=== PATIENT | male | born 1955 | race African-American/Black ===

== ENCOUNTER 2016-12-15 18:31 | Emergency (ER) | payer MEDICAID ==
[~2016-12-15] VITALS: Ht 180.3 cm; Wt 61.2 kg
[~2016-12-15 18:31] MED LIST: HUMALOG 75/255 UNIT1 SUBQ; HUMALOG KW200 UNIT/1 SQ
[2016-12-15 18:35] VITALS: BP 110/58
--- NOTE | 2016-12-15 18:43 | Emergency Room Report ---
History of Present Illness General Chief Complaint: Pain Source: Patient, EMS Present Illness HPI 61 YO M with IDDM presents with trip and fall walking to bathroom. C/o pain to right shoulder and right hip. Denies hitting head, taking AC or ASA. States " I havent gotten my insulin 3 days since I've been at this place ([facility])." Denies other medical problems. Denies preciptating chest pain, SOB, abd pain, headache, weakness. Allergies: Coded Allergies: No Known Allergies (Unverified , 07/15/16) Patient History Past Medical History: DM Past Surgical History: other - Right scott in femur Pertinent Family History: none Social History: Denies: alcohol use, drug use, smoking Immunizations: UTD Reviewed Nursing Documentation: PMH: Agreed, PSxH: Agreed Nursing Documentation-PMH Hx Hypertension: Yes Hx Diabetes: Yes Hx Neurological Problems: No Review of Systems All Other Systems: negative except mentioned in HPI Physical Exam Vital Signs Date Time Temp Pulse Resp B/P Pulse Ox O2 Delivery O2 Flow Rate FiO2 12/15/16 18:30 97.3 91 18 110/58 98 Sp02 EP Interpretation: reviewed, normal General Appearance: normal inspection, well appearing, no apparent distress, alert, GCS 15, non-toxic Head: normocephalic, atraumatic Eyes: bilateral eye EOMI, bilateral eye PERRL ENT: normal ENT inspection, hearing grossly normal, normal pharynx, no angioedema, normal voice Neck: normal inspection, full range of motion, supple, no bony tend Respiratory: normal inspection, lungs clear, normal breath sounds, no respiratory distress, no retraction, no wheezing Cardiovascular #1: normal peripheral pulses, regular rate, rhythm, no edema Gastrointestinal: normal inspection, normal bowel sounds, non tender, soft, no guarding, no hernia Rectal: deferred Genitourinary: no CVA tenderness Musculoskeletal: normal inspection, back normal, normal range of motion, no calf tenderness, Linda's Sign negative, other - No obvious trauma or deformity to 4 extremities. Mild ttp to top of right shoulder; no reduced ROM. 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 Bicarb normal. Glucose reduced to 323 s/p IVF NS and Insulin 5U. SerumCr at baseline. Unlikely DKA or HONK. Uncomplicated hyperglycemia from non-compliance. Patient states living facility has his correct dose of Insulin, doesnt require refill. Mild elevation in lueks possibly d/t stress from fall Right shoulder and AP pelvis xrays unremarkable for acute traumatic injury - analgesia provided in ED. Other X-Ray Diagnostic Results Other X-Ray Diagnostic Results : X-Ray Ordered: Right shoulder EP Interpretation: Yes Findings: no fractures, no dislocation, no soft tissue swelling Number of Views: 3 Other Impression AP pelvis 2 view ED review No acute fx, dislocation or soft tissue swelling Last Vital Signs Date Time Temp Pulse Resp B/P Pulse Ox O2 Delivery O2 Flow Rate FiO2 12/15/16 18:35 97.3 81 18 110/58 98 Status: improved Disposition: HOME, SELF-CARE Scripts Acetaminophen With Codeine (T#3) (TYLENOL #3 TAB*) Y Tab 1 TAB ORAL Q8H Y for For Pain, #30 TAB Prov: ONI BUCHANAN M.D. 12/15/16 ONI BUCHANAN M.D. Dec 15, 2016 18:42
[2016-12-15] MEDS ORDERED: Tylenol #3 tab (300mg/30mg) ORAL ONE (18:45)
[2016-12-15 19:11] LABS: BASOPHILS % (AUTO) 0.6 % (0.0-2.0); EOSINOPHILS % (AUTO) 0.9 % (0.0-3.0); LYMPHOCYTES % (AUTO) 22.6 % (20.0-45.0); MEAN CORPUSCULAR HEMOGLOBIN 33.1 PG (27.0-31.0); MEAN CORPUSCULAR HGB CONC 36.2 G/DL (32.0-36.0); MEAN CORPUSCULAR VOLUME 91 FL (80-99); MEAN PLATELET VOLUME 6.8 FL (6.5-10.1); MONOCYTES % (AUTO) 8.2 % (1.0-10.0); NEUTROPHILS % (AUTO) 67.8 % (45.0-75.0); PLATELET COUNT 272 K/UL (150-450); RED BLOOD COUNT 3.65 M/UL (4.70-6.10); RED CELL DISTRIBUTION WIDTH 10.2 % (11.6-14.8); WHITE BLOOD COUNT 13.6 K/UL (4.8-10.8)
[2016-12-15 19:30] LABS: ALANINE AMINOTRANSFERASE 16 U/L (3-41); ALBUMIN/GLOBULIN RATIO 1.4 (1.0-2.7); ANION GAP 18 (5-15); ASPARTATE AMINO TRANSFERASE 22 U/L (5-40); CALCIUM 9.4 mg/dL (8.6-10.2); CARBON DIOXIDE 23 mEQ/L (20-30); CHLORIDE 91 mEQ/L (98-107); CREATININE 1.2 mg/dL (0.7-1.2); GLOMERULAR FILTRATION RATE > 60 mL/min (>60); HEMOLYSIS 6; POTASSIUM 4.4 mEQ/L (3.4-4.9); SODIUM 132 mEQ/L (135-145); TOTAL PROTEIN 5.9 g/dL (6.6-8.7)
[2016-12-15 19:50] VITALS: BP 168/79
[2016-12-15 19:57] LABS: KETONES,URINE NEGATIVE (NEGATIVE); LEUKOCYTE ESTERASE ,URINE NEGATIVE (NEGATIVE); NITRITE,URINE NEGATIVE (NEGATIVE); PH,URINE 7 (4.5-8.0); PROTEIN,URINE 3+ (NEGATIVE); UROBILINOGEN,URINE NORMAL MG/DL (0.0-1.0)
[2016-12-15 19:59] LABS: APPEARANCE,URINE CLEAR
[2016-12-15 20:03] LABS: BACTERIA,URINE FEW /HPF; WBC,URINE 0-2 /HPF (0 - 0)
[2016-12-15] MEDS ORDERED: Oxycodone/Acetaminophen 5-325 ORAL ONE (21:30)
[2016-12-15] MEDS ORDERED: ACETAMINOPHEN-1 EAC1 ORAL (21:40)
[2016-12-15 21:43] VITALS: BP 166/93
[2016-12-15 23:46] VITALS: BP 163/61
[2016-12-15 23:49] VITALS: BP 163/61
--- NOTE | 2016-12-16 10:24 | Diagnostic Imaging Report ---
Indication: pain Findings: Single AP view of the pelvis was performed. Bones are osteopenic. There is an intramedullary scott in the right proximal femur a dressing a healed midshaft fracture. No acute fracture is identified. Impression: No acute fracture identified
--- NOTE | 2016-12-16 10:24 | Diagnostic Imaging Report ---
Indication: Pain Findings: 3 views of the right shoulder were obtained. No acute fractures, malalignment, erosions or periostitis are identified. Bone mineralization is within normal limits. Soft tissues are unremarkable. Impression: Negative examination of the shoulder.
== END 2016-12-15 23:49 | disposition home or self-care (01) ==
LOC: EDBD 18:31 → EMR 19:46
DX: M25.511 Pain in right shoulder (principal); E10.65 Type 1 diabetes mellitus with hyperglycemia; M25.551 Pain in right hip; I10 Essential (primary) hypertension; W01.0XXA Fall on same level from slipping, tripping and stumbling without subsequent striking against object, initial encounter; Y93.9 Activity, unspecified; Y92.9 Unspecified place or not applicable
CPT/HCPCS: 36415; 72170; 73030; 80053; 81003; 82009; 85025; 96360; 96372; 99284; J1815

== ENCOUNTER 2016-12-21 07:12 | Inpatient (IN) | payer MEDICAID ==
[~2016-12-21] VITALS: Ht 175.3 cm; Wt 79.4 kg
[~2016-12-21 07:12] MED LIST changes: +ACETAMINOPHEN-1 EAC1 ORAL
[2016-12-21 07:20] VITALS: BP 133/70
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
[2016-12-21] MEDS ORDERED: LORazepam Inj 2mg/ml 1ml IV ONE (07:30)
[2016-12-21] MEDS ORDERED: Hydrogen Peroxide 120ml Bottle TOPIC ONE (07:40)
[2016-12-21 07:55] LABS: MEAN CORPUSCULAR HEMOGLOBIN 31.3 PG (27.0-31.0); MEAN CORPUSCULAR HGB CONC 33.8 G/DL (32.0-36.0); MEAN CORPUSCULAR VOLUME 93 FL (80-99); MEAN PLATELET VOLUME 7.1 FL (6.5-10.1); PLATELET COUNT 270 K/UL (150-450); RED BLOOD COUNT 3.95 M/UL (4.70-6.10); RED CELL DISTRIBUTION WIDTH 10.5 % (11.6-14.8); WHITE BLOOD COUNT 19.7 K/UL (4.8-10.8)
[2016-12-21 08:02] LABS: INR 1.1 (0.9-1.1); PROTHROMBIN TIME 10.7 SEC (9.30-11.50)
[2016-12-21 08:06] LABS: ALANINE AMINOTRANSFERASE 19 U/L (3-41); ALBUMIN/GLOBULIN RATIO 1.4 (1.0-2.7); ALCOHOL < 10 mg/dL; ANION GAP 14 (5-15); ASPARTATE AMINO TRANSFERASE 56 U/L (5-40); CALCIUM 9.6 mg/dL (8.6-10.2); CARBON DIOXIDE 29 mEQ/L (20-30); CHLORIDE 95 mEQ/L (98-107); GLOMERULAR FILTRATION RATE 41.2 mL/min (>60); HEMOLYSIS 2; POTASSIUM 4.5 mEQ/L (3.4-4.9); SODIUM 138 mEQ/L (135-145); TOTAL PROTEIN 7.2 g/dL (6.6-8.7)
[2016-12-21 08:10] LABS: TROPONIN I < 0.30 ng/mL (<=0.30)
[2016-12-21] MEDS ORDERED: Bacitracin Oint UD TOPIC ONE ×2 (08:29→10:00)
[2016-12-21 09:08] LABS: BAND NEUTROPHILS % (MANUAL) 0 % (0-8); BASOPHILS % (MANUAL) 0 % (0-2); EOSINOPHILS % (MANUAL) 1 % (0-3); LYMPHOCYTES % (MANUAL) 6 % (20-45); NEUTROPHILS % (MANUAL) 87 % (45-75); PLATELET ESTIMATE ADEQUATE; PLATELET MORPHOLOGY NORMAL; TOTAL CELLS COUNTED 100
[2016-12-21 09:12] VITALS: BP 114/52
[2016-12-21] MEDS ORDERED: insulin (09:26)
--- NOTE | 2016-12-21 10:45 | Diagnostic Imaging Report ---
Indications: Fall, head trauma, pain Technique: Continuous helical CT imaging of the brain was performed with nonionic exposure control on a Siemens sensation [address] scanner. Axial and coronal images were reconstructed at 5 mm slice thickness and interval. CTDI volume(s): 70 mGy Total DLP: 1350 mGy-cm Findings: Comparison: None Mild low attenuation is present in the bilateral periventricular white matter. Ventricles, cisterns, and sulci are mildly, diffusely prominent. No evidence of mass or hemorrhage, mass effect, midline shift, hydrocephalus, or increased intracranial pressure. Bone window images are unremarkable. Visualized paranasal sinuses and mastoid air cells are clear. Lateral soft tissues mildly swollen and increased attenuation. No associated gas or foreign body demonstrated. IMPRESSION: Left periorbital soft tissue hematoma No other evidence of acute injury or other acute intracranial pathology Mild chronic age-related changes as described. . The CT scanner at [facility] is accredited by the [employer] and the scans are performed using protocols designed to limit radiation exposure to as low as reasonably achievable to attain images of sufficient resolution adequate for diagnostic evaluation.
--- NOTE | 2016-12-21 11:37 | History and Physical ---
History of Present Illness General Date patient seen: Dec 21, 2016 Reason for Hospitalization: Headache Present Illness HPI 61 year old male with hx of DM, homeless, drug abuse PT BIBA from recuperative care due to headache a/w head injury. bruised and 1 inch laceration noted on left left eye. no vision changes noted. denies any nausea or vomiting or blurred vision. per pt " tripped and fall." no active bleeding noted. pt appears to be agitated and talktive. AAO x4. Pt is admitted to telemetry for further evaluation Allergies: Coded Allergies: No Known Allergies (Unverified , 07/15/16) Medication History Scheduled Insulin Human Lispro (Humalog), 2 UNITS SUBQ BEFORE MEALS, (Reported) Insulin Lispro (Humalog Kwikpen), 23 UNIT SQ BEDTIME, (Reported) Scheduled PRN Acetaminophen With Codeine (T#3) (Tylenol #3 Tab*), 1 TAB ORAL Q8H PRN for For Pain Miscellaneous Medications [insulin], (Reported) Patient History Healthcare decision maker Resuscitation status Advanced Directive on File Past Medical/Surgical History Past Medical/Surgical History: (1) Colon polyps Review of Systems All Other Systems: negative except mentioned in HPI Physical Exam General Appearance: WD/WN, no apparent distress Lines, tubes and drains: peripheral, central line HEENT: normocephalic, atraumatic Respiratory/Chest: chest wall non-tender, normal breath sounds Breasts: no masses Cardiovascular/Chest: normal peripheral pulses Abdomen: normal bowel sounds, non tender Genitourinary/Rectal: normal genital exam, normal rectal exam Extremities: normal range of motion, non-tender Skin Exam: normal pigmentation Last 24 Hour Vital Signs Date Time Temp Pulse Resp B/P Pulse Ox O2 Delivery O2 Flow Rate FiO2 12/21/16 10:19 69 10 142/74 100 Room Air 12/21/16 09:12 98.0 70 12 114/52 100 Room Air 12/21/16 07:20 98.6 94 16 133/70 100 Room Air 12/21/16 07:10 98.1 77 18 157/99 99 Room Air Laboratory Tests Test 12/21/16 07:43 12/21/16 07:56 White Blood Count 19.7 K/UL (4.8-10.8) H Red Blood Count 3.95 M/UL (4.70-6.10) L Hemoglobin 12.4 G/DL (14.2-18.0) L Hematocrit 36.5 % (42.0-52.0) L Mean Corpuscular Volume 93 FL (80-99) Mean Corpuscular Hemoglobin 31.3 PG (27.0-31.0) H Mean Corpuscular Hemoglobin Concent 33.8 G/DL (32.0-36.0) Red Cell Distribution Width 10.5 % (11.6-14.8) L Platelet Count 270 K/UL (150-450) Mean Platelet Volume 7.1 FL (6.5-10.1) Neutrophils (%) (Auto) % (45.0-75.0) Lymphocytes (%) (Auto) % (20.0-45.0) Monocytes (%) (Auto) % (1.0-10.0) Eosinophils (%) (Auto) % (0.0-3.0) Basophils (%) (Auto) % (0.0-2.0) Differential Total Cells Counted 100 Neutrophils % (Manual) 87 % (45-75) H Lymphocytes % (Manual) 6 % (20-45) L Monocytes % (Manual) 6 % (1-10) Eosinophils % (Manual) 1 % (0-3) Basophils % (Manual) 0 % (0-2) Band Neutrophils 0 % (0-8) Platelet Estimate Adequate Platelet Morphology Normal Red Blood Cell Morphology Normal Prothrombin Time 10.7 SEC (9.30-11.50) Prothromb Time International Ratio 1.1 (0.9-1.1) Activated Partial Thromboplast Time 23 SEC (23-33) Sodium Level 138 mEQ/L (135-145) Potassium Level 4.5 mEQ/L (3.4-4.9) Chloride Level 95 mEQ/L (98-107) L Carbon Dioxide Level 29 mEQ/L (20-30) Anion Gap 14 (5-15) Blood Urea Nitrogen 44 mg/dL (7-23) H Creatinine 2.0 mg/dL (0.7-1.2) H Estimat Glomerular Filtration Rate 41.2 mL/min (>60) Glucose Level 212 mg/dL (74-106) H Calcium Level 9.6 mg/dL (8.6-10.2) Total Bilirubin 0.9 mg/dL (0.0-1.2) Aspartate Amino Transf (AST/SGOT) 56 U/L (5-40) H Alanine Aminotransferase (ALT/SGPT) 19 U/L (3-41) Alkaline Phosphatase 214 U/L (40-129) H Total Creatine Kinase 1503 U/L (38-174) H Troponin I < 0.30 ng/mL (<=0.30) Total Protein 7.2 g/dL (6.6-8.7) Albumin 4.2 g/dL (3.5-5.2) Globulin 3.0 g/dL Albumin/Globulin Ratio 1.4 (1.0-2.7) Serum Alcohol < 10 mg/dL Urine Opiates Screen Positive (NEGATIVE) H Urine Barbiturates Screen Negative (NEGATIVE) Phencyclidine (PCP) Screen Negative (NEGATIVE) Urine Amphetamines Screen Negative (NEGATIVE) Urine Benzodiazepines Screen Negative (NEGATIVE) Urine Cocaine Screen Positive (NEGATIVE) H Urine Marijuana (THC) Screen Negative (NEGATIVE) Height (Feet): 5 Height (Inches): 11.00 Weight (Pounds): 175 Assessment/Plan Problem List: (1) Acute encephalopathy ICD Codes: G93.40 - Encephalopathy, unspecified SNOMED: 4967904 (2) Syncope ICD Codes: R55 - Syncope and collapse SNOMED: [id number] Assessment/Plan neuro evaluation echo doppler of carotid artery social service CAITIE DOVER Dec 21, 2016 11:37
[2016-12-21] MEDS ORDERED: Mylanta II UD 30ml ORAL PRN ×2 (11:45→17:45)
[2016-12-21] MEDS ORDERED: Morphine Sulfate 2mg/ml Inj IVP PRN (11:45)
[2016-12-21] MEDS ORDERED: Miralax 17gm pkt ORAL PRN (11:45)
[2016-12-21] MEDS ORDERED: Nitroglycerin Subl 0.4mg tab (Bottle Of 25) SL PRN ×2 (11:45→14:30)
[2016-12-21] MEDS ORDERED: DuoNeb 0.5-3(2.5)mg/3ml neb HHN PRN ×2 (11:45→17:00)
[2016-12-21] MEDS ORDERED: LORazepam Inj 2mg/ml 1ml IV PRN ×2 (11:45→15:45)
[2016-12-21 12:00] VITALS: BP 162/89
[2016-12-21 12:07] VITALS: BP 162/72
--- NOTE | 2016-12-21 13:31 | Cardiology Report ---
APPROVED REPORT EXAM: Two-dimensional and M-mode echocardiogram with Doppler and color Doppler. INDICATION Left Ventricular Function M-Mode DIMENSIONS IVSd0.7 (0.7-1.1cm)Left Atrium (MM)3.2 (1.6-4.0cm) LVDd5.3 (3.5-5.6cm)Aortic Root2.7 (2.0-3.7cm) PWd0.8 (0.7-1.1cm)Aortic Cusp Exc.2.0 (1.5-2.0cm) LVDs3.2 (2.5-4.0cm) PWs1.7 cm Normal left ventricular chamber size, systolic function and wall motion. Left ventricular ejection fraction estimated to be 55 %. No evidence of left ventricular hypertrophy. No evidence of pericardial fat or effusion. All other cardiac chamber sizes are within normal limits. Mild focal aortic valve sclerosis with adequate cusp excursion. Mildly thickened mitral valve leaflets with normal excursion. Mild mitral annulus and aortic root calcification. Normal pulmonic valve structure. Normal tricuspid valve structure. IVC dilated at 2.2 cm with physiologic collapse. A color flow and spectral Doppler study was performed and revealed: Mild to moderate aortic regurgitation. Trace mitral regurgitation. Mitral diastolic velocities suggest reduced left ventricular relaxation (Grade I). Trace tricuspid regurgitation. Tricuspid systolic velocities suggests peak right ventricular systolic pressure of 17 mmHg No pulmonic regurgitation present.
--- NOTE | 2016-12-21 13:42 | Cardiology Report ---
APPROVED REPORT EKG Measurement Heart [id number] Normal sinus rhythm Nonspecific ST and T wave abnormality Abnormal ECG
[2016-12-21 16:00] VITALS: BP 140/73
[2016-12-21] MEDS ORDERED: NovoLOG Insulin Flexpen SUBQ SCH (16:30)
[2016-12-21] MEDS: Morphine Sulfate 2mg/ml Inj IVP PRN ×2 (18:07→22:28)
[2016-12-21] MEDS: NovoLOG Insulin Flexpen SUBQ SCH ×2 (18:11→21:50)
[2016-12-21 20:00] VITALS: BP 134/56
[2016-12-21] MEDS ORDERED: Heparin 5000 units/ml inj SUBQ SCH (21:00)
[2016-12-21] MEDS: Heparin 5000 units/ml inj SUBQ SCH (21:51)
[2016-12-22 00:40] VITALS: BP 141/82
[2016-12-22] MEDS: Morphine Sulfate 2mg/ml Inj IVP PRN ×5 (02:59→21:35)
[2016-12-22 04:00] VITALS: BP 159/86
[2016-12-22] MEDS: NovoLOG Insulin Flexpen SUBQ SCH ×4 (06:26→21:42)
[2016-12-22 07:51] LABS: INR 1.1 (0.9-1.1); PROTHROMBIN TIME 11.1 SEC (9.30-11.50)
[2016-12-22 07:58] LABS: BASOPHILS % (AUTO) 0.6 % (0.0-2.0); EOSINOPHILS % (AUTO) 2.7 % (0.0-3.0); LYMPHOCYTES % (AUTO) 35.7 % (20.0-45.0); MEAN CORPUSCULAR HEMOGLOBIN 32.2 PG (27.0-31.0); MEAN CORPUSCULAR HGB CONC 34.7 G/DL (32.0-36.0); MEAN CORPUSCULAR VOLUME 93 FL (80-99); MEAN PLATELET VOLUME 7.6 FL (6.5-10.1); MONOCYTES % (AUTO) 7.5 % (1.0-10.0); NEUTROPHILS % (AUTO) 53.5 % (45.0-75.0); PLATELET COUNT 221 K/UL (150-450); RED BLOOD COUNT 3.54 M/UL (4.70-6.10); RED CELL DISTRIBUTION WIDTH 10.4 % (11.6-14.8); WHITE BLOOD COUNT 11.7 K/UL (4.8-10.8)
[2016-12-22 08:00] VITALS: BP 110/57
[2016-12-22 08:04] LABS: ALANINE AMINOTRANSFERASE 15 U/L (3-41); ALBUMIN/GLOBULIN RATIO 1.2 (1.0-2.7); ANION GAP 13 (5-15); ASPARTATE AMINO TRANSFERASE 36 U/L (5-40); CALCIUM 8.8 mg/dL (8.6-10.2); CARBON DIOXIDE 26 mEQ/L (20-30); CHLORIDE 98 mEQ/L (98-107); CHOLESTEROL 125 mg/dL (< 200); CHOLESTEROL/HDL RATIO 1.5 (3.3-4.4); CREATININE 1.2 mg/dL (0.7-1.2); GLOMERULAR FILTRATION RATE > 60 mL/min (>60); HEMOLYSIS 5; LDL CHOLESTEROL (CALC.) 28 mg/dL (60-99); POTASSIUM 4.2 mEQ/L (3.4-4.9); SODIUM 137 mEQ/L (135-145); TOTAL PROTEIN 5.8 g/dL (6.6-8.7)
[2016-12-22 08:11] LABS: THYROID STIMULATING HORMONE 0.152 uIU/mL (0.300-4.500)
[2016-12-22] MEDS: Heparin 5000 units/ml inj SUBQ SCH ×2 (08:49→21:41)
[2016-12-22] MEDS ORDERED: Miralax 17gm pkt ORAL PRN (11:45)
[2016-12-22 12:00] VITALS: BP 132/63
[2016-12-22 16:12] VITALS: BP 114/64
--- NOTE | 2016-12-22 16:25 | Neurology Progress Note ---
Objective Physical Exam Last Vital Signs Date Time Temp Pulse Resp B/P Pulse Ox O2 Delivery O2 Flow Rate FiO2 12/22/16 16:12 97.2 62 18 114/64 98 Room Air Laboratory Tests Test 12/22/16 06:40 White Blood Count 11.7 K/UL (4.8-10.8) H Red Blood Count 3.54 M/UL (4.70-6.10) L Hemoglobin 11.4 G/DL (14.2-18.0) L Hematocrit 32.8 % (42.0-52.0) L Mean Corpuscular Volume 93 FL (80-99) Mean Corpuscular Hemoglobin 32.2 PG (27.0-31.0) H Mean Corpuscular Hemoglobin Concent 34.7 G/DL (32.0-36.0) Red Cell Distribution Width 10.4 % (11.6-14.8) L Platelet Count 221 K/UL (150-450) Mean Platelet Volume 7.6 FL (6.5-10.1) Neutrophils (%) (Auto) 53.5 % (45.0-75.0) Lymphocytes (%) (Auto) 35.7 % (20.0-45.0) Monocytes (%) (Auto) 7.5 % (1.0-10.0) Eosinophils (%) (Auto) 2.7 % (0.0-3.0) Basophils (%) (Auto) 0.6 % (0.0-2.0) Prothrombin Time 11.1 SEC (9.30-11.50) Prothromb Time International Ratio 1.1 (0.9-1.1) Activated Partial Thromboplast Time 25 SEC (23-33) Sodium Level 137 mEQ/L (135-145) Potassium Level 4.2 mEQ/L (3.4-4.9) Chloride Level 98 mEQ/L (98-107) Carbon Dioxide Level 26 mEQ/L (20-30) Anion Gap 13 (5-15) Blood Urea Nitrogen 20 mg/dL (7-23) Creatinine 1.2 mg/dL (0.7-1.2) Estimat Glomerular Filtration Rate > 60 mL/min (>60) Glucose Level 192 mg/dL (74-106) H Calcium Level 8.8 mg/dL (8.6-10.2) Total Bilirubin 1.0 mg/dL (0.0-1.2) Aspartate Amino Transf (AST/SGOT) 36 U/L (5-40) Alanine Aminotransferase (ALT/SGPT) 15 U/L (3-41) Alkaline Phosphatase 107 U/L (40-129) Total Protein 5.8 g/dL (6.6-8.7) L Albumin 3.2 g/dL (3.5-5.2) L Globulin 2.6 g/dL Albumin/Globulin Ratio 1.2 (1.0-2.7) Triglycerides Level 59 mg/dL (< 150) Cholesterol Level 125 mg/dL (< 200) LDL Cholesterol 28 mg/dL (60-99) L HDL Cholesterol 85 mg/dL (> 60) H Cholesterol/HDL Ratio 1.5 (3.3-4.4) L Thyroid Stimulating Hormone (TSH) 0.152 uIU/mL (0.300-4.500) Impression/Recommendations Problems: (1) Headache due to trauma (2) Right shoulder injury (3) Substance abuse Recommendations # [id number] RAVINDER NICOLAS Dec 22, 2016 16:25
[2016-12-22] MEDS ORDERED: LORazepam 0.5mg tab ORAL PRN (16:30)
[2016-12-22] MEDS ORDERED: RisperiDONE 0.25mg tab ORAL PRN (16:30)
--- NOTE | 2016-12-22 19:46 | Pulmonology Progress Note ---
Assessment/Plan Assessment/Plan ASSESSMENT s/p mechanical fall possible syncope blunt head trauma acute toxic encephalopathy drug abuse DM homeless APRIL/ATN -resolved elevated CK ( possibly due to fall vs rhabdo) elevated AST ( AST to ALT >2:1) ? ETOH abuse AR, mild to moderate PLAN OF CARE MS floor CT head with left periorbital soft tissue hematoma, no other acute changes on CT urine tox screen + opiates, cocaine 2D ECHO with EF 55% and RVSP of 17, mild to moderate AR Carotid Doppler orthostatic VS - no evidence of orthostatic changes IVF monitor renal parameters, lytes, (stable) and trend CK , pain management DVT prophylaxis BS management with SS of insulin and optimize as needed PT/OT fall precautions case discussed and evaluated by supervising physician Subjective Allergies: Coded Allergies: No Known Allergies (Unverified , 07/15/16) Subjective leukocytosis trending down, afebrile, renal parameters down to normal no chest pain no SOB Objective Last 24 Hour Vital Signs Date Time Temp Pulse Resp B/P Pulse Ox O2 Delivery O2 Flow Rate FiO2 12/22/16 19:20 65 16 Room Air 12/22/16 17:55 97.2 12/22/16 16:12 97.2 62 18 114/64 98 Room Air 12/22/16 12:00 98.1 75 18 132/63 97 Room Air 12/22/16 08:00 97.9 60 20 110/57 98 Room Air 12/22/16 07:40 85 16 Room Air 12/22/16 07:28 97.9 12/22/16 06:27 165/88 12/22/16 06:16 76 85 12/22/16 04:00 99.7 76 19 159/86 96 Room Air 12/22/16 02:46 86 14 Room Air 12/22/16 00:40 99.1 80 19 141/82 98 Room Air 12/21/16 21:50 97.0 12/21/16 20:00 96.0 86 22 134/56 100 Room Air Intake and Output 12/21/16 12/22/16 19:00 07:00 Intake Total 1000 ml Output Total 500 ml Balance 500 ml Intake Oral 0 ml IV Total 1000 ml Output Urine Total 500 ml General Appearance: no acute distress HEENT: normocephalic, atraumatic, anicteric, mucous membranes moist, PERRL Respiratory/Chest: lungs clear, no respiratory distress, no accessory muscle use Cardiovascular: normal rate, regular rhythm, no JVD Abdomen: normal bowel sounds, soft, non tender, non distended Genitourinary: normal external genitalia Extremities: no edema, pedal pulses normal Neurologic/Psychiatric: alert, oriented x 3, responsive, normal mood/affect Musculoskeletal: normal muscle bulk Laboratory Tests 12/22/16 06:40: White Blood Count 11.7H, Red Blood Count 3.54L, Hemoglobin 11.4L, Hematocrit 32.8L, Mean Corpuscular Volume 93, Mean Corpuscular Hemoglobin 32.2H, Mean Corpuscular Hemoglobin Concent 34.7, Red Cell Distribution Width 10.4L, Platelet Count 221, Mean Platelet Volume 7.6, Neutrophils (%) (Auto) 53.5, Lymphocytes (%) (Auto) 35.7, Monocytes (%) (Auto) 7.5, Eosinophils (%) (Auto) 2.7, Basophils (%) (Auto) 0.6, Prothrombin Time 11.1, Prothromb Time International Ratio 1.1, Activated Partial Thromboplast Time 25, Sodium Level 137, Potassium Level 4.2, Chloride Level 98, Carbon Dioxide Level 26, Anion Gap 13, Blood Urea Nitrogen 20, Creatinine 1.2, Estimat Glomerular Filtration Rate > 60, Glucose Level 192H, Calcium Level 8.8, Total Bilirubin 1.0, Aspartate Amino Transf (AST/SGOT) 36, Alanine Aminotransferase (ALT/SGPT) 15, Alkaline Phosphatase 107, Total Protein 5.8L, Albumin 3.2L, Globulin 2.6, Albumin/ Globulin Ratio 1.2, Triglycerides Level 59, Cholesterol Level 125, LDL Cholesterol 28L, HDL Cholesterol 85H, Cholesterol/HDL Ratio 1.5L, Thyroid Stimulating Hormone (TSH) 0.152L Current Medications Medications (Trade) Dose Ordered Sig/Vishal Route PRN Reason Start Time Stop Time Status Last Admin Dose Admin Acetaminophen (Tylenol) 650 mg Q4H PRN ORAL fever 12/21/16 15:45 01/20/17 15:44 12/22/16 06:29 Al Hydroxide/Mg Hydroxide (Mylanta II) 30 ml Q6H PRN ORAL dyspepsia 12/21/16 17:45 01/20/17 17:44 Albuterol/ Ipratropium (DuoNeb 0.5-3(2.5)mg/3ml) 3 ml EVERY 4 HOURS PRN HHN Shortness of Breath 12/21/16 17:00 12/26/16 16:59 Clonidine HCl (Catapres) 0.1 mg Q4H PRN ORAL For High Blood Pressure 12/21/16 15:45 01/20/17 15:44 12/22/16 06:27 Dextrose (Dextrose 50%) STAT PRN IV Hypoglycemia 12/22/16 11:45 01/21/17 11:44 Heparin Sodium (Porcine) (Heparin 5000 units/ml) 5,000 units EVERY 12 HOURS SUBQ 12/21/16 21:00 01/20/17 20:59 12/22/16 08:49 Insulin Aspart (NovoLOG) BEFORE MEALS AND HS SUBQ 12/21/16 16:30 01/20/17 16:29 12/22/16 16:56 Lorazepam (Ativan 2mg/ml 1ml) 0.5 mg Q4H PRN IV For Anxiety 12/21/16 15:45 12/28/16 15:44 Lorazepam (Ativan) 0.25 mg TIDPRN PRN ORAL For Anxiety 12/22/16 16:30 12/29/16 16:29 Morphine Sulfate (Morphine Sulfate) 1 mg EVERY 4 HOURS PRN IVP For Pain 7-10 12/21/16 17:00 12/28/16 16:59 12/22/16 17:25 Nitroglycerin (Ntg) 0.4 mg Q5M X 3 DOSES PRN SL Prn Chest Pain 12/21/16 14:30 01/20/17 14:29 Ondansetron HCl (Zofran) 4 mg Q6H PRN IVP Nausea & Vomiting 12/21/16 17:45 01/20/17 17:44 Polyethylene Glycol (Miralax) 17 gm HSPRN PRN ORAL Constipation 12/22/16 11:45 01/21/17 11:44 Risperidone (RisperDAL) 0.25 mg Q6H PRN ORAL Agitation 12/22/16 16:30 01/21/17 16:29 Temazepam (Restoril) 15 mg HSPRN PRN ORAL Insomnia 12/22/16 11:45 12/29/16 11:44 Tasia Yu NP (Vanchtein) Dec 22, 2016 19:46
[2016-12-22 20:00] VITALS: BP 129/64
[2016-12-23] VITALS: BP 134/69
[2016-12-23] MEDS: Morphine Sulfate 2mg/ml Inj IVP PRN ×6 (01:34→22:39)
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
[2016-12-23] MEDS: NovoLOG Insulin Flexpen SUBQ SCH ×4 (06:50→20:59)
[2016-12-23 07:41] LABS: BASOPHILS % (AUTO) 0.8 % (0.0-2.0); EOSINOPHILS % (AUTO) 3.9 % (0.0-3.0); LYMPHOCYTES % (AUTO) 37.6 % (20.0-45.0); MEAN CORPUSCULAR HEMOGLOBIN 31.5 PG (27.0-31.0); MEAN CORPUSCULAR HGB CONC 33.2 G/DL (32.0-36.0); MEAN CORPUSCULAR VOLUME 95 FL (80-99); MEAN PLATELET VOLUME 7.4 FL (6.5-10.1); MONOCYTES % (AUTO) 8.6 % (1.0-10.0); NEUTROPHILS % (AUTO) 49.1 % (45.0-75.0); PLATELET COUNT 194 K/UL (150-450); RED BLOOD COUNT 3.31 M/UL (4.70-6.10); RED CELL DISTRIBUTION WIDTH 10.5 % (11.6-14.8); WHITE BLOOD COUNT 8.4 K/UL (4.8-10.8)
[2016-12-23 07:46] LABS: ANION GAP 10 (5-15); CALCIUM 8.4 mg/dL (8.6-10.2); CARBON DIOXIDE 25 mEQ/L (20-30); CHLORIDE 100 mEQ/L (98-107); CREATININE 1.1 mg/dL (0.7-1.2); GLOMERULAR FILTRATION RATE > 60 mL/min (>60); HEMOLYSIS 3; POTASSIUM 4.4 mEQ/L (3.4-4.9); SODIUM 135 mEQ/L (135-145)
[2016-12-23 08:00] VITALS: BP 159/73
[2016-12-23] MEDS: Heparin 5000 units/ml inj SUBQ SCH ×2 (08:55→20:58)
--- NOTE | 2016-12-23 12:12 | Pulmonology Progress Note ---
Assessment/Plan Assessment/Plan ASSESSMENT s/p mechanical fall possible syncope blunt head trauma R shoulder injury acute toxic encephalopathy drug abuse DM homeless APRIL/ATN -resolved elevated CK ( possibly due to fall vs rhabdo) elevated AST ( AST to ALT >2:1) ? ETOH abuse AR, mild to moderate low TSH, r/o hyperthymism PLAN OF CARE MS floor CT head with left periorbital soft tissue hematoma, no other acute changes on CT urine tox screen + opiates, cocaine 2D ECHO with EF 55% and RVSP of 17, mild to moderate AR Carotid Doppler orthostatic VS - no evidence of orthostatic changes X ray R shoulder IVF monitor renal parameters, lytes, (stable) and trend CK , pain management DVT prophylaxis BS management , add Levemir and SS of insulin , optimize as needed reinforce compliance with diabetic diet, diabetic education low TSH, check free T3 and T4 PT/OT fall precautions SS for placement case discussed and evaluated by supervising physician Subjective Allergies: Coded Allergies: No Known Allergies (Unverified , 07/15/16) Subjective leukocytosis resovled, afebrile, renal parameters down to normal no chest pain no SOB BS out of control over 400 this am, not complainant with diet Objective Last 24 Hour Vital Signs Date Time Temp Pulse Resp B/P Pulse Ox O2 Delivery O2 Flow Rate FiO2 12/23/16 08:00 97.4 82 18 159/73 100 Room Air 12/23/16 06:50 98.6 12/23/16 00:00 98.6 71 18 134/69 99 Room Air 12/22/16 20:00 99.0 65 18 129/64 99 Room Air 12/22/16 19:20 65 16 Room Air 12/22/16 16:12 97.2 62 18 114/64 98 Room Air Intake and Output 12/22/16 12/23/16 19:00 07:00 Intake Total 800 ml 500 ml Output Total 300 ml 850 ml Balance 500 ml -350 ml Intake Oral 800 ml 500 ml Output Urine Total 300 ml 850 ml # Voids 1 Objective General Appearance: no acute distress HEENT: normocephalic, atraumatic, anicteric, mucous membranes moist, PERRL Respiratory/Chest: lungs clear, no respiratory distress, no accessory muscle use Cardiovascular: normal rate, regular rhythm, no JVD Abdomen: normal bowel sounds, soft, non tender, non distended Genitourinary: normal external genitalia Extremities: no edema, pedal pulses normal Neurologic/Psychiatric: alert, oriented x 3, responsive, normal mood/affect Musculoskeletal: normal muscle bulk Laboratory Tests 12/23/16 04:40: White Blood Count 8.4, Red Blood Count 3.31L, Hemoglobin 10.4L, Hematocrit 31.4L , Mean Corpuscular Volume 95, Mean Corpuscular Hemoglobin 31.5H, Mean Corpuscular Hemoglobin Concent 33.2, Red Cell Distribution Width 10.5L, Platelet Count 194, Mean Platelet Volume 7.4, Neutrophils (%) (Auto) 49.1, Lymphocytes (%) (Auto) 37.6, Monocytes (%) (Auto) 8.6, Eosinophils (%) (Auto) 3.9H, Basophils (%) (Auto) 0.8, Sodium Level 135, Potassium Level 4.4, Chloride Level 100, Carbon Dioxide Level 25, Anion Gap 10, Blood Urea Nitrogen 18, Creatinine 1.1, Estimat Glomerular Filtration Rate > 60, Glucose Level 437#H, Calcium Level 8.4L Current Medications Medications (Trade) Dose Ordered Sig/Vishal Route PRN Reason Start Time Stop Time Status Last Admin Dose Admin Acetaminophen (Tylenol) 650 mg Q4H PRN ORAL fever 12/21/16 15:45 01/20/17 15:44 12/22/16 06:29 Al Hydroxide/Mg Hydroxide (Mylanta II) 30 ml Q6H PRN ORAL dyspepsia 12/21/16 17:45 01/20/17 17:44 Albuterol/ Ipratropium (DuoNeb 0.5-3(2.5)mg/3ml) 3 ml EVERY 4 HOURS PRN HHN Shortness of Breath 12/21/16 17:00 12/26/16 16:59 Clonidine HCl (Catapres) 0.1 mg Q4H PRN ORAL For High Blood Pressure 12/21/16 15:45 01/20/17 15:44 12/22/16 06:27 Dextrose (Dextrose 50%) STAT PRN IV Hypoglycemia 12/22/16 11:45 01/21/17 11:44 Heparin Sodium (Porcine) (Heparin 5000 units/ml) 5,000 units EVERY 12 HOURS SUBQ 12/21/16 21:00 01/20/17 20:59 12/23/16 08:55 Insulin Aspart (NovoLOG) BEFORE MEALS AND HS SUBQ 12/21/16 16:30 01/20/17 16:29 12/23/16 06:50 Lorazepam (Ativan 2mg/ml 1ml) 0.5 mg Q4H PRN IV For Anxiety 12/21/16 15:45 12/28/16 15:44 Lorazepam (Ativan) 0.25 mg TIDPRN PRN ORAL For Anxiety 12/22/16 16:30 12/29/16 16:29 Morphine Sulfate (Morphine Sulfate) 1 mg EVERY 4 HOURS PRN IVP For Pain 7-10 12/21/16 17:00 12/28/16 16:59 12/23/16 09:58 Nitroglycerin (Ntg) 0.4 mg Q5M X 3 DOSES PRN SL Prn Chest Pain 12/21/16 14:30 01/20/17 14:29 Ondansetron HCl (Zofran) 4 mg Q6H PRN IVP Nausea & Vomiting 12/21/16 17:45 01/20/17 17:44 Polyethylene Glycol (Miralax) 17 gm HSPRN PRN ORAL Constipation 12/22/16 11:45 01/21/17 11:44 Risperidone (RisperDAL) 0.25 mg Q6H PRN ORAL Agitation 12/22/16 16:30 01/21/17 16:29 Temazepam (Restoril) 15 mg HSPRN PRN ORAL Insomnia 12/22/16 11:45 12/29/16 11:44 12/23/16 00:16 Tasia Yu NP (Vanchtein) Dec 23, 2016 12:12
[2016-12-23 12:33] VITALS: BP 162/78
[2016-12-23] MEDS: Levemir Flexpen SUBQ SCH (13:05)
[2016-12-23 16:00] VITALS: BP 163/90
[2016-12-23 19:00] VITALS: BP 154/88
[2016-12-24] VITALS: BP 150/74
[2016-12-24] MEDS: Morphine Sulfate 2mg/ml Inj IVP PRN ×2 (02:56→08:50)
[2016-12-24 04:15] VITALS: BP 154/81
[2016-12-24] MEDS: NovoLOG Insulin Flexpen SUBQ SCH ×4 (06:27→20:47)
[2016-12-24 07:17] LABS: BASOPHILS % (AUTO) 0.7 % (0.0-2.0); EOSINOPHILS % (AUTO) 3.6 % (0.0-3.0); LYMPHOCYTES % (AUTO) 37.1 % (20.0-45.0); MEAN CORPUSCULAR HGB CONC 33.7 G/DL (32.0-36.0); MEAN CORPUSCULAR VOLUME 95 FL (80-99); MEAN PLATELET VOLUME 7.5 FL (6.5-10.1); MONOCYTES % (AUTO) 7.5 % (1.0-10.0); NEUTROPHILS % (AUTO) 51.1 % (45.0-75.0); PLATELET COUNT 210 K/UL (150-450); RED BLOOD COUNT 3.37 M/UL (4.70-6.10); RED CELL DISTRIBUTION WIDTH 10.7 % (11.6-14.8)
[2016-12-24 07:36] LABS: ANION GAP 12 (5-15); CALCIUM 8.9 mg/dL (8.6-10.2); CARBON DIOXIDE 25 mEQ/L (20-30); CHLORIDE 100 mEQ/L (98-107); CREATININE 1.2 mg/dL (0.7-1.2); GLOMERULAR FILTRATION RATE > 60 mL/min (>60); HEMOLYSIS 5; POTASSIUM 4.2 mEQ/L (3.4-4.9); SODIUM 137 mEQ/L (135-145)
[2016-12-24 07:37] LABS: FREE T3 2.3 pg/mL (2.3-4.2)
[2016-12-24 08:10] VITALS: BP 134/58
[2016-12-24] MEDS: Heparin 5000 units/ml inj SUBQ SCH ×2 (08:44→20:51)
[2016-12-24] MEDS: Levemir Flexpen SUBQ SCH (08:44)
[2016-12-24 12:00] VITALS: BP 150/73
[2016-12-24 16:00] VITALS: BP 153/76
--- NOTE | 2016-12-24 18:14 | Pulmonology Progress Note ---
Assessment/Plan Problems: (1) Acute encephalopathy (2) Syncope Assessment/Plan social service evaluation [facility] placement doens't have skilled needs for snif. Subjective ROS Limited/Unobtainable: No Interval Events: c/o righ shoulder pain Constitutional: Reports: no symptoms Allergies: Coded Allergies: No Known Allergies (Unverified , 07/15/16) Objective Last 24 Hour Vital Signs Date Time Temp Pulse Resp B/P Pulse Ox O2 Delivery O2 Flow Rate FiO2 12/24/16 16:00 99.0 70 18 153/76 100 Room Air 12/24/16 12:00 96.6 65 18 150/73 100 Room Air 12/24/16 09:20 97.9 12/24/16 08:10 97.9 74 18 134/58 100 Room Air 12/24/16 06:45 79 19 Room Air 21 12/24/16 04:15 98.1 68 18 154/81 100 Room Air 12/24/16 00:00 97.9 65 18 150/74 100 Room Air 12/23/16 19:05 82 16 Room Air 21 12/23/16 19:00 98.3 76 18 154/88 100 Room Air Intake and Output 12/23/16 12/24/16 19:00 07:00 Intake Total 1540 ml 360 ml Balance 1540 ml 360 ml Intake Oral 1540 ml 360 ml # Voids 6 4 General Appearance: cachetic HEENT: normocephalic, atraumatic Respiratory/Chest: chest wall non-tender, lungs clear Cardiovascular: normal peripheral pulses, normal rate Abdomen: normal bowel sounds, soft, non tender Genitourinary: normal external genitalia Extremities: no cyanosis 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, no motor/sensory deficits Lymphatic: no neck adenopathy Laboratory Tests 12/24/16 05:55: White Blood Count 8.0, Red Blood Count 3.37L, Hemoglobin 10.8L, Hematocrit 32.0L , Mean Corpuscular Volume 95, Mean Corpuscular Hemoglobin 32.0H, Mean Corpuscular Hemoglobin Concent 33.7, Red Cell Distribution Width 10.7L, Platelet Count 210, Mean Platelet Volume 7.5, Neutrophils (%) (Auto) 51.1, Lymphocytes (%) (Auto) 37.1, Monocytes (%) (Auto) 7.5, Eosinophils (%) (Auto) 3.6H, Basophils (%) (Auto) 0.7, Sodium Level 137, Potassium Level 4.2, Chloride Level 100, Carbon Dioxide Level 25, Anion Gap 12, Blood Urea Nitrogen 19, Creatinine 1.2, Estimat Glomerular Filtration Rate > 60, Glucose Level 394H, Calcium Level 8.9, Total Creatine Kinase 153, Free Thyroxine 1.37, Free Triiodothyronine 2.3 Current Medications Medications (Trade) Dose Ordered Sig/Vishal Route PRN Reason Start Time Stop Time Status Last Admin Dose Admin Acetaminophen (Tylenol) 650 mg Q4H PRN ORAL Fever/Headache/Mild Pain 12/24/16 12:30 01/23/17 12:29 12/24/16 16:35 Al Hydroxide/Mg Hydroxide (Mylanta II) 30 ml Q6H PRN ORAL dyspepsia 12/21/16 17:45 01/20/17 17:44 Albuterol/ Ipratropium (DuoNeb 0.5-3(2.5)mg/3ml) 3 ml EVERY 4 HOURS PRN HHN Shortness of Breath 12/21/16 17:00 12/26/16 16:59 Clonidine HCl (Catapres) 0.1 mg Q4H PRN ORAL For High Blood Pressure 12/21/16 15:45 01/20/17 15:44 12/23/16 17:24 Dextrose (Dextrose 50%) STAT PRN IV Hypoglycemia 12/22/16 11:45 01/21/17 11:44 Heparin Sodium (Porcine) (Heparin 5000 units/ml) 5,000 units EVERY 12 HOURS SUBQ 12/21/16 21:00 01/20/17 20:59 12/24/16 08:44 Insulin Aspart (NovoLOG) BEFORE MEALS AND HS SUBQ 12/21/16 16:30 01/20/17 16:29 12/24/16 16:39 Insulin Detemir (Levemir) 10 units DAILY SUBQ 12/23/16 13:00 01/22/17 12:59 12/24/16 08:44 Lorazepam (Ativan 2mg/ml 1ml) 0.5 mg Q4H PRN IV For Anxiety 12/21/16 15:45 12/28/16 15:44 Lorazepam (Ativan) 0.25 mg TIDPRN PRN ORAL For Anxiety 12/22/16 16:30 12/29/16 16:29 Nitroglycerin (Ntg) 0.4 mg Q5M X 3 DOSES PRN SL Prn Chest Pain 12/21/16 14:30 01/20/17 14:29 Ondansetron HCl (Zofran) 4 mg Q6H PRN IVP Nausea & Vomiting 12/21/16 17:45 01/20/17 17:44 Polyethylene Glycol (Miralax) 17 gm HSPRN PRN ORAL Constipation 12/22/16 11:45 01/21/17 11:44 Risperidone (RisperDAL) 0.25 mg Q6H PRN ORAL Agitation 12/22/16 16:30 01/21/17 16:29 Temazepam (Restoril) 15 mg HSPRN PRN ORAL Insomnia 12/22/16 11:45 12/29/16 11:44 12/24/16 00:42 CAITIE DOVER Dec 24, 2016 18:14
[2016-12-24] MEDS: Norco 5mg/325mg tab ORAL PRN (19:22)
[2016-12-25] VITALS: BP 146/76
[2016-12-25] MEDS: Norco 5mg/325mg tab ORAL PRN ×3 (01:55→14:36)
[2016-12-25 04:00] VITALS: BP 131/61
[2016-12-25] MEDS: NovoLOG Insulin Flexpen SUBQ SCH ×5 (06:26→17:33)
[2016-12-25] MEDS: Heparin 5000 units/ml inj SUBQ SCH (08:37)
[2016-12-25] MEDS: Levemir Flexpen SUBQ SCH (08:37)
[2016-12-25 08:43] VITALS: BP 167/91
[2016-12-25 11:58] VITALS: BP 154/69
--- NOTE | 2016-12-25 12:03 | Diagnostic Imaging Report ---
APPROVED REPORT CPT Code: 14632 Vascular Symptoms Dizziness and Vertigo Doppler Spectral Velocity Analysis RightLeft BILATERAL: CCA/BULB - Imaging reveals irregular, minimal plaque in both carotid bulbs. arteries. The Doppler spectral flow analysis is within normal limits throughout the internal and external carotid arteries. VERTEBRALS - Imaging reveals both vertebral arteries to be patent, without evidence of stenosis or steal.
[2016-12-25 16:00] VITALS: BP 137/80
--- NOTE | 2016-12-25 16:19 | Pulmonology Progress Note ---
Assessment/Plan Problems: (1) Acute encephalopathy (2) Syncope (3) Diabetes (4) Severe protein-calorie malnutrition (5) Homelessness (6) Substance abuse Assessment/Plan social service evaluation [facility] placement doens't have skilled needs for snif. dc home/ [facility] in am Subjective Interval Events: pt cant go home tonight, wants to leave in am Allergies: Coded Allergies: No Known Allergies (Unverified , 07/15/16) Objective Last 24 Hour Vital Signs Date Time Temp Pulse Resp B/P Pulse Ox O2 Delivery O2 Flow Rate FiO2 12/25/16 15:35 98.2 12/25/16 11:58 98.2 79 19 154/69 99 Room Air 12/25/16 08:54 167/91 12/25/16 08:43 98.2 93 20 167/91 95 Room Air 12/25/16 08:20 84 18 Room Air 21 12/25/16 04:00 97.9 73 18 131/61 98 Room Air 12/25/16 00:00 98.8 69 18 146/76 100 Room Air 12/24/16 19:50 70 18 Room Air 21 12/24/16 19:22 96.6 Intake and Output 12/24/16 12/25/16 19:00 07:00 Intake Total 720 ml 1010 ml Balance 720 ml 1010 ml Intake Oral 720 ml 1010 ml # Voids 3 4 Respiratory/Chest: chest wall non-tender, lungs clear Cardiovascular: normal peripheral pulses, normal rate, regular rhythm Abdomen: normal bowel sounds, soft, non tender Genitourinary: normal external genitalia Extremities: no clubbing 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, no motor/sensory deficits Current Medications Medications (Trade) Dose Ordered Sig/Vishal Route PRN Reason Start Time Stop Time Status Last Admin Dose Admin Acetaminophen (Tylenol) 650 mg Q4H PRN ORAL Fever/Headache/Mild Pain 12/24/16 12:30 01/23/17 12:29 12/24/16 16:35 Acetaminophen/ Hydrocodone Bitart ([place] 5/325) 1 tab Q6H PRN ORAL Moderate Pain (Pain Scale 4-6) 12/24/16 18:15 12/31/16 18:14 12/25/16 14:36 Al Hydroxide/Mg Hydroxide (Mylanta II) 30 ml Q6H PRN ORAL dyspepsia 12/21/16 17:45 01/20/17 17:44 Albuterol/ Ipratropium (DuoNeb 0.5-3(2.5)mg/3ml) 3 ml EVERY 4 HOURS PRN HHN Shortness of Breath 12/21/16 17:00 12/26/16 16:59 Clonidine HCl (Catapres) 0.1 mg Q4H PRN ORAL For High Blood Pressure 12/21/16 15:45 01/20/17 15:44 12/25/16 08:54 Dextrose (Dextrose 50%) STAT PRN IV Hypoglycemia 12/22/16 11:45 01/21/17 11:44 Dextrose (Dextrose 50%) STAT PRN IV Hypoglycemia 12/25/16 10:00 01/24/17 09:59 Heparin Sodium (Porcine) (Heparin 5000 units/ml) 5,000 units EVERY 12 HOURS SUBQ 12/21/16 21:00 01/20/17 20:59 12/25/16 08:37 Insulin Aspart (NovoLOG) BEFORE MEALS AND HS SUBQ 12/21/16 16:30 01/20/17 16:29 12/25/16 11:52 Insulin Aspart (NovoLOG) 6 units NOVOTIAC SUBQ 12/25/16 11:50 01/24/17 11:49 12/25/16 11:53 Insulin Detemir (Levemir) 10 units BID SUBQ 12/25/16 18:00 01/24/17 17:59 Lorazepam (Ativan 2mg/ml 1ml) 0.5 mg Q4H PRN IV For Anxiety 12/21/16 15:45 12/28/16 15:44 Lorazepam (Ativan) 0.25 mg TIDPRN PRN ORAL For Anxiety 12/22/16 16:30 12/29/16 16:29 Nitroglycerin (Ntg) 0.4 mg Q5M X 3 DOSES PRN SL Prn Chest Pain 12/21/16 14:30 01/20/17 14:29 Ondansetron HCl (Zofran) 4 mg Q6H PRN IVP Nausea & Vomiting 12/21/16 17:45 01/20/17 17:44 Polyethylene Glycol (Miralax) 17 gm HSPRN PRN ORAL Constipation 12/22/16 11:45 01/21/17 11:44 Risperidone (RisperDAL) 0.25 mg Q6H PRN ORAL Agitation 12/22/16 16:30 01/21/17 16:29 Temazepam (Restoril) 15 mg HSPRN PRN ORAL Insomnia 12/22/16 11:45 12/29/16 11:44 12/24/16 20:42 CAITIE DOVER Dec 25, 2016 16:19
[2016-12-25] MEDS ORDERED: Levemir Flexpen SUBQ SCH (18:00)
[2016-12-25] MEDS ORDERED: KEFLEX500 MG ORAL (23:35)
[2016-12-25] MEDS ORDERED: BACTRIM DS TAB1 EAC1 ORAL (23:35)
--- NOTE | 2016-12-27 15:07 | Discharge Summary ---
Discharge Summary Hospital Course Date of Admission Dec 21, 2016 at 09:29 Date of Discharge Dec 25, 2016 at 19:39 Admitting Diagnosis acute renal injury, substance abuse, diabetes HPI John Alvarez is a 61 year old male who was admitted on Dec 21, 2016 at 09:29 for Substance Abuse Hospital Course [id number] Discharge Discharge Disposition Patient eloped Discharge Diagnoses: Nicole Mora NP Dec 27, 2016 15:07
--- NOTE | 2016-12-27 22:58 | Discharge Summary 2 SIG ---
DATE OF ADMISSION: 12/21/2016 DATE OF DISCHARGE: 12/25/2016 RUBBER TIRE CURER DOCTOR: Edison Fernandes M.D. BRIEF HOSPITAL COURSE: The patient is a 61-year-old male with a history of diabetes mellitus, homeless, and drug abuse. The patient was brought in by ambulance from [facility] due to headaches associated with head injury. The patient tripped and fell. He had a bruise and 1 inch laceration near the left eye. On evaluation in the ED, CAT scan showed left periorbital soft tissue hematoma, but there was no evidence of intracranial abnormalities and no evidence of previous trauma or stroke. Toxicology panel was positive for cocaine and opiates. He was seen by Neurology. Headache was attributed to be secondary to posttraumatic blunt head trauma and was given pain control and hydration with tight blood sugar control. However, the patient was noncompliant with diet and had elevated blood glucose measurements. Orthostatic vitals were monitored. There was no evidence of orthostatic changes. He was given diabetic education and reinforced compliance with diabetic diet. Social service was consulted to aid in the patient's placement. There was no senior care needs and was recommended nursing home; however, he refused placement and eloped from the hospital. FINAL DIAGNOSES: 1. Acute toxic encephalopathy. 2. Status post mechanical fall. 3. Possible syncope. 4. Blunt head trauma. 5. Right shoulder injury. 6. Drug abuse. 7. Diabetes mellitus, out of control. 8. Homelessness. 9. Acute kidney injury. 10. Elevated CK, possibly due to fall, contributing to rhabdomyolysis. 11. Severe protein-calorie malnutrition. 12. Status post blunt head trauma with posttraumatic cephalalgia. 13. Cocaine intoxication. 14. Chronic psychiatric disease. Franki Peña M.D. I have been assigned to dictate discharge summary on this account and I was not involved in the patient's management. Nicole Mora N.P. DR: KYLAH JOB#: [id number] CC: RICARDO
== END 2016-12-25 19:39 | disposition left against medical advice (07) | DRG 52 ==
LOC: EDBD 07:12 → EMR 07:25 → EDBEDREQ 09:15 → 2W 09:29 → EDBEDREQ 09:44 → 4W 14:20
DX: G92 Toxic encephalopathy (principal); E43 Unspecified severe protein-calorie malnutrition; N17.9 Acute kidney failure, unspecified; S09.8XXA Other specified injuries of head, initial encounter; R55 Syncope and collapse; M62.82 Rhabdomyolysis; S00.81XA Abrasion of other part of head, initial encounter; F19.10 Other psychoactive substance abuse, uncomplicated; E11.9 Type 2 diabetes mellitus without complications; F14.129 Cocaine abuse with intoxication, unspecified; W01.0XXA Fall on same level from slipping, tripping and stumbling without subsequent striking against object, initial encounter; Y92.511 Restaurant or cafe as the place of occurrence of the external cause; S49.91XA Unspecified injury of right shoulder and upper arm, initial encounter; Z59.0 Homelessness; G44.309 Post-traumatic headache, unspecified, not intractable; F99 Mental disorder, not otherwise specified; S01.112A Laceration without foreign body of left eyelid and periocular area, initial encounter; Z91.11 Patient's noncompliance with dietary regimen; Z79.4 Long term (current) use of insulin; I34.0 Nonrheumatic mitral (valve) insufficiency; F19.129 Other psychoactive substance abuse with intoxication, unspecified; Z68.1 Body mass index [BMI] 19.9 or less, adult
CPT/HCPCS: 36415; 70450; 80048; 80053; 80061; 80300; 80329; 82550; 82962; 84439; 84443; 84481; 84484; 85007; 85025; 85610; 85730; 93005; 93306; 93880; 94664; J1815; S5561

== ENCOUNTER 2016-12-25 20:34 | Emergency (ER) | payer MEDICAID ==
[~2016-12-25] VITALS: Ht 195.6 cm; Wt 90.7 kg
[~2016-12-25 20:34] MED LIST changes: +insulin
[2016-12-25 22:51] VITALS: BP 142/75
[2016-12-25] MEDS ORDERED: Lidocaine 2% 20mg/ml/Epi 0.005mg/ml 20ml vial ONE (23:13)
[2016-12-25] MEDS ORDERED: Lidocaine 1% 10mg/ml/EPI 0.01mg/ml 50ml INJ ONE (23:15)
[2016-12-25] MEDS ORDERED: Lidocaine 2% 20mg/ml/Epi 0.005mg/ml 20ml vial INJ ONE (23:15)
[2016-12-25 23:30] VITALS: BP 135/76
[2016-12-25] MEDS ORDERED: Surgicel 4in x 8in TOPIC ONE (23:30)
[2016-12-25] MEDS ORDERED: KEFLEX500 MG ORAL (23:35)
[2016-12-25] MEDS ORDERED: BACTRIM DS TAB1 EAC1 ORAL (23:35)
[2016-12-25 23:40] VITALS: BP 135/76
--- NOTE | 2016-12-26 02:07 | Emergency Room Report ---
History of Present Illness General Chief Complaint: Skin Rash/Abscess Source: Family Member Present Illness HPI Patient is a 61-year-old male who presented after having increased pain to his nasal area. Patient recently been seen by me was started on oral antibiotics. Patient was noted to have prior history of staph infection. Patient denied any fever. Patient prior history of diabetes. Patient denied any other complaints this time. Allergies: Coded Allergies: No Known Allergies (Unverified , 07/15/16) Patient History Past Medical History: see triage record Reviewed Nursing Documentation: PMH: Agreed, PSxH: Agreed Nursing Documentation-PMH Hx Hypertension: Yes Hx Diabetes: Yes Hx Cancer: No Hx Gastrointestinal Problems: Yes Hx Neurological Problems: No Review of Systems All Other Systems: negative except mentioned in HPI Physical Exam Vital Signs Date Time Temp Pulse Resp B/P Pulse Ox O2 Delivery O2 Flow Rate FiO2 12/25/16 22:43 98.6 80 16 142/75 99 Room Air General Appearance: well appearing, no apparent distress, alert, non-toxic Head: normocephalic, atraumatic ENT: hearing grossly normal, normal voice, other - nasal swelling, small amount of purulent drainage Neck: full range of motion, supple Respiratory: lungs clear, normal breath sounds, no respiratory distress, speaking full sentences Cardiovascular #1: normal inspection, normal peripheral pulses, regular rate, rhythm Gastrointestinal: normal bowel sounds, non tender, soft Musculoskeletal: normal inspection, no calf tenderness Neurologic: normal inspection, alert, oriented x3, responsive, normal gait Psychiatric: mood/affect normal Skin: no rash, other - slight nasal fluctuance Procedures Incision and Drainage Incision and Drainage : Consent: Verbal Site: nasal I & D Procedure: betadine prep Wound Location: face Wound's Depth, Shape: superficial Wound Length (cm): 0 Anesthesia: Lidocaine w/ Epi Patient Tolerated: Well Complications: None Medical Decision Making Diagnostic Impression: Primary Impression: Staphylococcus infection of nose ER Course Patient presented for nasal infection. Differential diagnosis included was not limited to abscess, cellulitis, furuncle among others. Patient's benign exam and does not appear to require any further imaging or laboratory testing at this time. The patient underwent needle aspiration with some purulent material obtained. Patient was given oral antibiotic prescription. Patient noted her to have somewhat prescriptions for extended that time of antibiotics.Patient is advised to recheck with his primary care physician for wound check in the next few days. The patient was noted to have some bleeding post procedure and Surgicel is applied. Last Vital Signs Date Time Temp Pulse Resp B/P Pulse Ox O2 Delivery O2 Flow Rate FiO2 12/25/16 23:40 98.4 78 16 135/76 100 Room Air Status: improved Disposition: HOME, SELF-CARE Condition: Stable Scripts Cephalexin* (KEFLEX*) 500 Mg Capsule 500 MG ORAL Q6H, #28 CAP 0 Refills Prov: Benedict Villalba 12/25/16 Trimethoprim/Sulfamethoxazole 160/800* (BACTRIM DS TABLET*) 1 Each Tablet 1 TAB ORAL Q12H, #14 TAB 0 Refills Prov: Benedict Villalba 12/25/16 Referrals: ONEL ELIZABETH,REFERRING (PCP) Patient Instructions: MRSA Infection, Adult Benedict Villalba Dec 26, 2016 02:07
== END 2016-12-25 23:40 | disposition home or self-care (01) ==
LOC: EMR 23:10
DX: L08.89 Other specified local infections of the skin and subcutaneous tissue (principal); B95.8 Unspecified staphylococcus as the cause of diseases classified elsewhere; E11.9 Type 2 diabetes mellitus without complications; I10 Essential (primary) hypertension
CPT/HCPCS: 10060

== ENCOUNTER 2017-01-27 20:25 | Emergency (ER) | payer MEDICAID ==
[~2017-01-27] VITALS: Ht 182.9 cm; Wt 57.6 kg
[~2017-01-27 20:25] MED LIST changes: +BACTRIM DS TAB1 EAC1 ORAL; +KEFLEX500 MG ORAL
[2017-01-27] MEDS ORDERED: Oxycodone/Acetaminophen 5-325 ORAL ONE (21:00)
[2017-01-27 21:05] VITALS: BP 101/64
--- NOTE | 2017-01-27 22:00 | Emergency Room Report ---
History of Present Illness General Chief Complaint: Pain Source: Patient Present Illness HPI [id number] c/o right chest pain after slip and fall on right chest yesterday. Pain worse with deep inspiration. Denies open wounds, previous rib fx, COPD, asthma , smoking. Allergies: Coded Allergies: No Known Allergies (Unverified , 07/15/16) Patient History Past Medical History: none, see triage record, old chart reviewed Past Surgical History: none Pertinent Family History: none Social History: Denies: alcohol use, drug use, smoking Immunizations: UTD Reviewed Nursing Documentation: PMH: Agreed, PSxH: Agreed Nursing Documentation-PMH Hx Hypertension: Yes Hx Diabetes: Yes Hx Cancer: No Hx Gastrointestinal Problems: Yes Hx Neurological Problems: No Review of Systems All Other Systems: negative except mentioned in HPI Physical Exam Vital Signs Date Time Temp Pulse Resp B/P Pulse Ox O2 Delivery O2 Flow Rate FiO2 01/27/17 20:41 97.9 74 16 101/64 18 Room Air Sp02 EP Interpretation: reviewed, normal General Appearance: normal inspection, well appearing, no apparent distress, alert, GCS 15, non-toxic Head: normocephalic, atraumatic Eyes: bilateral eye EOMI, bilateral eye PERRL ENT: normal ENT inspection, hearing grossly normal, normal voice Neck: normal inspection, full range of motion, supple, no bony tend Respiratory: normal inspection, lungs clear, normal breath sounds, no respiratory distress, no retraction, no wheezing, other - Mild ttp to right chest below nipple. No obviosu deformity palpable. Cardiovascular #1: regular rate, rhythm, no edema Gastrointestinal: normal inspection, normal bowel sounds, non tender, soft, no guarding, no hernia Genitourinary: no CVA tenderness Musculoskeletal: normal inspection, back normal, normal range of motion, Linda' s Sign negative Neurologic: normal inspection, alert, oriented x3, responsive, customer account coordinator III-XII nml as tested, motor strength/tone normal, speech normal Psychiatric: normal inspection, judgement/insight normal, mood/affect normal Skin: normal inspection, normal color, no rash Medical Decision Making Diagnostic Impression: Primary Impression: Contusion of right chest wall Qualified Codes: S20.211A - Contusion of right front wall of thorax, initial encounter ER Course Xrays: no PTX or rib fx on ED review Analgesia provided here Rx Lidoderm patch, T#3 PMD followup DC home Chest X-Ray Diagnostic Results EP Interpretation: Yes Findings: no consolidation Number of Views: 1 Other X-Ray Diagnostic Results Other X-Ray Diagnostic Results : X-Ray Ordered: Right rib series EP Interpretation: Yes Findings: no fractures, no dislocation, no soft tissue swelling Number of Views: 3 Last Vital Signs Date Time Temp Pulse Resp B/P Pulse Ox O2 Delivery O2 Flow Rate FiO2 01/27/17 21:05 97.9 16 101/64 18 Room Air 01/27/17 20:41 74 Status: improved Disposition: HOME, SELF-CARE ONI BUCHANAN M.D. Jan 27, 2017 22:00
[2017-01-27] MEDS ORDERED: LIDODERM700 M1 TOPIC (22:02)
[2017-01-27] MEDS ORDERED: ACETAMINOPHEN-1 EAC1 ORAL (22:02)
[2017-01-27 22:10] VITALS: BP 105/71
[2017-01-27 22:23] VITALS: BP 105/71
--- NOTE | 2017-01-28 09:57 | Diagnostic Imaging Report ---
\H\CHEST RADIOGRAPH\N\ Indication: Chest pain Technique: Single AP view of the chest. Findings: Comparison: None. The bones and extra pulmonary soft tissues, cardiomediastinal silhouette, pulmonary vasculature and parenchyma, and pleural surfaces are unremarkable. IMPRESSION: Negative AP chest . \H\RIGHT RIB RADIOGRAPHS\N\ Indications: Right rib cage pain. Technique: 4 views of the right ribs. Findings: Comparison: None. No fracture, lytic destruction, periosteal reaction, or other acute skeletal changes are identified. The overlying chest wall soft tissues, underlying pleura and pulmonary parenchyma are unremarkable. IMPRESSION: Negative right rib series.
== END 2017-01-27 23:30 | disposition home or self-care (01) ==
LOC: EMR 23:23
DX: S20.211A Contusion of right front wall of thorax, initial encounter (principal); W01.0XXA Fall on same level from slipping, tripping and stumbling without subsequent striking against object, initial encounter; Y93.9 Activity, unspecified; Y92.9 Unspecified place or not applicable; I10 Essential (primary) hypertension; E11.9 Type 2 diabetes mellitus without complications
CPT/HCPCS: 99283

== ENCOUNTER 2017-04-07 12:19 | Inpatient (IN) | payer MEDICAID ==
[~2017-04-07] VITALS: Ht 175.3 cm; Wt 65.8 kg
[~2017-04-07 12:19] MED LIST changes: +LIDODERM700 M1 TOPIC
[2017-04-07] MEDS: Nitroglycerin Subl 0.4mg tab (Bottle Of 25) SL PRN ×2 (13:14→13:34)
[2017-04-07 13:24] LABS: EOSINOPHILS % (AUTO) 1.1 % (0.0-3.0); LYMPHOCYTES % (AUTO) 30.7 % (20.0-45.0); MEAN CORPUSCULAR HEMOGLOBIN 32.4 PG (27.0-31.0); MEAN CORPUSCULAR HGB CONC 34.2 G/DL (32.0-36.0); MEAN CORPUSCULAR VOLUME 95 FL (80-99); MEAN PLATELET VOLUME 6.3 FL (6.5-10.1); MONOCYTES % (AUTO) 3.9 % (1.0-10.0); NEUTROPHILS % (AUTO) 63.3 % (45.0-75.0); PLATELET COUNT 300 K/UL (150-450); RED CELL DISTRIBUTION WIDTH 11.3 % (11.6-14.8); WHITE BLOOD COUNT 11.1 K/UL (4.8-10.8)
[2017-04-07 13:40] LABS: TROPONIN I < 0.30 ng/mL (<=0.30)
[2017-04-07 13:43] LABS: ACETAMINOPHEN < 10 ug/mL (10-30); ALANINE AMINOTRANSFERASE 17 U/L (3-41); ALBUMIN/GLOBULIN RATIO 1.2 (1.0-2.7); ALCOHOL < 10 mg/dL; ANION GAP 16 (5-15); ASPARTATE AMINO TRANSFERASE 31 U/L (5-40); CALCIUM 9.8 mg/dL (8.6-10.2); CARBON DIOXIDE 25 mEQ/L (20-30); CHLORIDE 96 mEQ/L (98-107); CREATININE 1.2 mg/dL (0.7-1.2); GLOMERULAR FILTRATION RATE > 60 mL/min (>60); HEMOLYSIS 11; POTASSIUM 4.2 mEQ/L (3.4-4.9); SODIUM 137 mEQ/L (135-145); TOTAL PROTEIN 7.9 g/dL (6.6-8.7)
[2017-04-07 13:45] VITALS: BP 177/92
[2017-04-07 13:54] LABS: CKMB 3.2 ng/mL (< 6.7)
[2017-04-07] MEDS ORDERED: Norco 5mg/325mg tab ORAL ONE (14:00)
[2017-04-07 14:27] VITALS: BP 170/80
--- NOTE | 2017-04-07 14:45 | Emergency Room Report ---
History of Present Illness General Chief Complaint: Generalized Weakness Source: Patient Present Illness HPI 61-year-old male presents to ED for evaluation. Patient is here complaining of left leg pain and chest pain. Patient states that he ran of his blood pressure medication and diabetic medications 3 days ago. Notes pressure in his chest, left-sided, 7/10, nonradiating. Denies shortness of breath. States he has a scott in his left leg. Pain is a 10 out of 10, sharp, nonradiating. Patient states he feels weak. No other aggravating or relieving factors. Denies any other associated symptom Allergies: Coded Allergies: No Known Allergies (Unverified , 07/15/16) Patient History Past Medical History: DM, HTN Past Surgical History: none Pertinent Family History: none Social History: Denies: alcohol use, drug use, smoking Immunizations: UTD Reviewed Nursing Documentation: PMH: Agreed, PSxH: Agreed Nursing Documentation-PMH Hx Cardiac Problems: No Hx Hypertension: Yes Hx Pacemaker: No Hx Asthma: No Hx COPD: No Hx Diabetes: Yes Hx Cancer: No Hx Gastrointestinal Problems: No Hx Dialysis: No History Of Psychiatric Problem: No Hx Neurological Problems: No Hx Cerebrovascular Accident: No Hx Seizures: No Review of Systems All Other Systems: negative except mentioned in HPI Physical Exam Vital Signs Date Time Temp Pulse Resp B/P Pulse Ox O2 Delivery O2 Flow Rate FiO2 04/07/17 12:12 98.1 78 16 150/90 98 Room Air Sp02 EP Interpretation: reviewed, normal General Appearance: no apparent distress, alert, GCS 15, non-toxic, thin Head: normocephalic, atraumatic Eyes: bilateral eye PERRL, bilateral eye normal inspection ENT: hearing grossly normal, normal pharynx, no angioedema, normal voice Neck: full range of motion, supple/symm/no masses Respiratory: chest non-tender, lungs clear, normal breath sounds, speaking full sentences Cardiovascular #1: regular rate, rhythm, no edema Cardiovascular #2: 2+ carotid (R), 2+ carotid (L), 2+ radial (R), 2+ radial (L) , 2+ dorsalis pedis (R), 2+ dorsalis pedis (L) Gastrointestinal: normal bowel sounds, non tender, soft, non-distended, no guarding, no rebound Rectal: deferred Genitourinary: normal inspection, no CVA tenderness Musculoskeletal: back normal, gait/station normal, normal range of motion, non- tender Neurologic: alert, oriented x3, responsive, motor strength/tone normal, sensory intact, speech normal Psychiatric: judgement/insight normal, memory normal, mood/affect normal, no suicidal/homicidal ideation Reflexes: 3+ bicep (R), 3+ bicep (L), 3+ tricep (R), 3+ tricep (L), 3+ knee (R) , 3+ knee (L) Skin: normal color, no rash, warm/dry, well hydrated Lymphatic: no adenopathy Medical Decision Making Diagnostic Impression: Primary Impression: ACS (acute coronary syndrome) Additional Impression: Episode of generalized weakness ER Course Hospital Course 61-year-old male presents ED complaining of chest pain, weakness Differential diagnoses include: SC/unstable angina, contusion, muscle strain, PTX, rib fracture Clinical course Patient placed on stretcher. on monitor technician. After initial history and physical I ordered labs, EKG, chest x-ray, NTG labs reviewed- no leukocytosis, hb/hct stable, electrolytes ok, trop negatie, UDS - negativ EKG - NSR, no acute changes interpreted by me Chest x-ray- unremarkable chest pain improved after nitroglycerin. given aspirin. given norco for chronic leg pain. given IVFs Case discussed with Dr. Peña and he agreed to accept the patient to his service for further care and support I. I feel this is a highly complex case requiring extensive working including EKG/Rhythm strip, Xray/CT/US, Blood/urine lab work, repeat exams while in ED, and administration of strong opiates/narcotics for pain control, admission to hospital or close patient follow up. Diagnosis - ACS, episode of generalized weakness admitted to telemetry in serious condition Labs Test 04/07/17 13:07 04/07/17 13:10 White Blood Count 11.1 K/UL (4.8-10.8) Red Blood Count 4.30 M/UL (4.70-6.10) Hemoglobin 14.0 G/DL (14.2-18.0) Hematocrit 40.8 % (42.0-52.0) Mean Corpuscular Volume 95 FL (80-99) Mean Corpuscular Hemoglobin 32.4 PG (27.0-31.0) Mean Corpuscular Hemoglobin Concent 34.2 G/DL (32.0-36.0) Red Cell Distribution Width 11.3 % (11.6-14.8) Platelet Count 300 K/UL (150-450) Mean Platelet Volume 6.3 FL (6.5-10.1) Neutrophils (%) (Auto) 63.3 % (45.0-75.0) Lymphocytes (%) (Auto) 30.7 % (20.0-45.0) Monocytes (%) (Auto) 3.9 % (1.0-10.0) Eosinophils (%) (Auto) 1.1 % (0.0-3.0) Basophils (%) (Auto) 1.0 % (0.0-2.0) Sodium Level 137 mEQ/L (135-145) Potassium Level 4.2 mEQ/L (3.4-4.9) Chloride Level 96 mEQ/L (98-107) Carbon Dioxide Level 25 mEQ/L (20-30) Anion Gap 16 (5-15) Blood Urea Nitrogen 14 mg/dL (7-23) Creatinine 1.2 mg/dL (0.7-1.2) Estimat Glomerular Filtration Rate > 60 mL/min (>60) Glucose Level 234 mg/dL (74-106) Calcium Level 9.8 mg/dL (8.6-10.2) Total Bilirubin 0.9 mg/dL (0.0-1.2) Aspartate Amino Transf (AST/SGOT) 31 U/L (5-40) Alanine Aminotransferase (ALT/SGPT) 17 U/L (3-41) Alkaline Phosphatase 150 U/L (40-129) Total Creatine Kinase 119 U/L (38-174) Creatine Kinase MB 3.2 ng/mL (< 6.7) Creatine Kinase MB Relative Index 2.6 Troponin I < 0.30 ng/mL (<=0.30) Total Protein 7.9 g/dL (6.6-8.7) Albumin 4.4 g/dL (3.5-5.2) Globulin 3.5 g/dL Albumin/Globulin Ratio 1.2 (1.0-2.7) Salicylates Level < 1 mg/dL (10-30) Acetaminophen Level < 10 ug/mL (10-30) Serum Alcohol < 10 mg/dL Urine Opiates Screen Negative (NEGATIVE) Urine Barbiturates Screen Negative (NEGATIVE) Phencyclidine (PCP) Screen Negative (NEGATIVE) Urine Amphetamines Screen Negative (NEGATIVE) Urine Benzodiazepines Screen Negative (NEGATIVE) Urine Cocaine Screen Negative (NEGATIVE) Urine Marijuana (THC) Screen Negative (NEGATIVE) EKG Diagnostic Results Rate: normal Rhythm: NSR ST Segments: no acute changes ASA given to the pt in ED: Yes Rhythm Strip Diag. Results EP Interpretation: yes Rhythm: NSR, no PVC's, no ectopy Chest X-Ray Diagnostic Results Chest X-Ray Ordered: Yes # of Views/Limited/Complete: 1 View Interpretation: no consolidation, no effusion, no pneumothorax, no acute cardiopulmonary disease Indication: Chest Pain Impression: No acute disease Date Electronically Signed: Apr 07, 2017 Time Electronically Signed: 14:40 Interpreting ER Physician: Jeremie Bonds MD Last Vital Signs Date Time Temp Pulse Resp B/P Pulse Ox O2 Delivery O2 Flow Rate FiO2 04/07/17 14:27 78 16 170/80 98 Room Air 04/07/17 12:12 98.1 Status: improved Disposition: ADMITTED INPATIENT Condition: Serious Referrals: [facility],REFERRING (PCP) JEREMIE BONDS M.D. Apr 07, 2017 14:45
[2017-04-07] MEDS ORDERED: DuoNeb 0.5-3(2.5)mg/3ml neb HHN PRN (15:00)
[2017-04-07] MEDS ORDERED: Ketorolac 30mg Inj IV PRN (15:00)
[2017-04-07] MEDS ORDERED: Diltiazem 25mg/5ml IV PRN (15:00)
[2017-04-07] MEDS ORDERED: Miralax 17gm pkt ORAL PRN (15:00)
[2017-04-07] MEDS ORDERED: Nitroglycerin Subl 0.4mg tab (Bottle Of 25) SL PRN (15:00)
[2017-04-07] MEDS: Morphine Sulfate 2mg/ml Inj IVP PRN ×2 (15:54→20:06)
[2017-04-07 16:30] VITALS: BP 197/98
[2017-04-07] MEDS: NovoLOG Insulin Flexpen SUBQ SCH ×2 (16:30→21:32)
[2017-04-07] MEDS: Enalaprilat 2.5mg/2ml Inj IV PRN (17:00)
[2017-04-07 17:03] VITALS: BP 158/90
[2017-04-07 17:52] VITALS: BP 181/95
[2017-04-07 20:00] VITALS: BP 158/95
[2017-04-07] MEDS: Heparin 5000 units/ml inj SUBQ SCH (21:21)
[2017-04-08] VITALS (7 sets, daily range): BP systolic 98–188; BP diastolic 50–105
[2017-04-08] MEDS: Morphine Sulfate 2mg/ml Inj IVP PRN ×6 (00:15→22:27)
[2017-04-08] MEDS: Heparin 5000 units/ml inj SUBQ SCH ×3 (06:00→21:16)
[2017-04-08] MEDS: NovoLOG Insulin Flexpen SUBQ SCH ×4 (06:25→21:15)
[2017-04-08 07:01] LABS: PROTHROMBIN TIME 10.6 SEC (9.30-11.50)
[2017-04-08 07:02] LABS: BASOPHILS % (AUTO) 0.5 % (0.0-2.0); EOSINOPHILS % (AUTO) 0.2 % (0.0-3.0); LYMPHOCYTES % (AUTO) 19.7 % (20.0-45.0); MEAN CORPUSCULAR HEMOGLOBIN 32.4 PG (27.0-31.0); MEAN CORPUSCULAR HGB CONC 34.6 G/DL (32.0-36.0); MEAN CORPUSCULAR VOLUME 94 FL (80-99); MEAN PLATELET VOLUME 6.4 FL (6.5-10.1); MONOCYTES % (AUTO) 5.5 % (1.0-10.0); NEUTROPHILS % (AUTO) 74.1 % (45.0-75.0); PLATELET COUNT 338 K/UL (150-450); RED BLOOD COUNT 4.25 M/UL (4.70-6.10); WHITE BLOOD COUNT 14.4 K/UL (4.8-10.8)
[2017-04-08 07:17] LABS: TROPONIN I < 0.30 ng/mL (<=0.30)
[2017-04-08 07:24] LABS: CHOLESTEROL 202 mg/dL (< 200); CRP QUANT < 0.3 mg/dL (< 0.5); HEMOLYSIS 5; LDL CHOLESTEROL (CALC.) 74 mg/dL (60-99)
[2017-04-08 07:29] LABS: THYROID STIMULATING HORMONE 0.099 uIU/mL (0.300-4.500)
[2017-04-08] MEDS: Enalaprilat 2.5mg/2ml Inj IV PRN ×2 (08:24→17:02)
[2017-04-08] MEDS: Aspirin Baby 81mg ORAL SCH (08:24)
--- NOTE | 2017-04-08 12:07 | Diagnostic Imaging Report ---
Indication: Shortness of breath Technique: Single AP view of the chest. Findings: Comparison: None. Lungs are symmetrically volume, right greater than left, but clear. The bones and extra pulmonary soft tissues, cardiomediastinal silhouette, pulmonary vasculature, and pleural surfaces are unremarkable. IMPRESSION: Asymmetric lung volumes, nonspecific, acuity indeterminate. Acute air-trapping secondary to central intrabronchial ball-valve type lesion not excludable. Consider bronchoscopy for further evaluation as clinically indicated. Otherwise negative.
--- NOTE | 2017-04-08 15:22 | History and Physical ---
History of Present Illness General Date patient seen: Apr 08, 2017 Reason for Hospitalization: Generalized Weakness Present Illness HPI 61-year-old male presents to ED for evaluation of left leg pain and chest pain. He ran of his blood pressure medication and diabetic medications 3 days ago. Notes pressure in his chest, left-sided, 7/10, nonradiating. Denies shortness of breath. Pain is a 10 out of 10, sharp, nonradiating. Patient states he feels weak. Allergies: Coded Allergies: No Known Allergies (Unverified , 07/15/16) Medication History Scheduled Insulin Human Lispro (Humalog), UNITS SUBQ BEFORE MEALS, (Reported) Insulin Lispro (Humalog Kwikpen), UNIT SQ BEDTIME, (Reported) Discontinued Medications Acetaminophen With Codeine (T#3) (Tylenol #3 Tab*), 1 TAB ORAL Q8H PRN for For Pain Discontinued Reason: Therapy completed Acetaminophen With Codeine (T#3) (Tylenol #3 Tab*), 1 TAB ORAL Q8H PRN for For Pain Discontinued Reason: Therapy completed Cephalexin* (Keflex*), 500 MG ORAL Q6H Discontinued Reason: Therapy completed Lidocaine (Lidoderm), 1 PATCH TOPIC DAILY Discontinued Reason: Therapy completed Trimethoprim/Sulfamethoxazole 160/800* (Bactrim Ds Tablet*), 1 TAB ORAL Q12H Discontinued Reason: Therapy completed Patient History Healthcare decision maker Resuscitation status Advanced Directive on File Review of Systems All Other Systems: negative except mentioned in HPI Physical Exam General Appearance: WD/WN Lines, tubes and drains: peripheral, PICC HEENT: normocephalic, atraumatic Neck: non-tender, normal alignment Respiratory/Chest: chest wall non-tender, normal breath sounds Cardiovascular/Chest: normal peripheral pulses, normal rate Abdomen: normal bowel sounds Genitourinary/Rectal: normal genital exam Extremities: normal range of motion, normal inspection Skin Exam: normal pigmentation Last 24 Hour Vital Signs Date Time Temp Pulse Resp B/P Pulse Ox O2 Delivery O2 Flow Rate FiO2 04/08/17 12:00 97.0 106 18 172/96 97 Room Air 102 04/08/17 12:00 84 04/08/17 08:24 160/106 04/08/17 08:00 96.9 106 18 168/91 97 Room Air 106 04/08/17 08:00 90 04/08/17 04:00 97.2 92 16 98/50 98 Room Air 92 04/08/17 04:00 109 04/08/17 00:55 96.4 100 16 173/105 100 Room Air 100 04/08/17 00:00 104 04/07/17 20:00 94 04/07/17 20:00 90 16 158/95 100 Room Air 04/07/17 17:52 87 16 181/95 100 Room Air 04/07/17 17:41 84 04/07/17 17:03 93 15 158/90 100 Room Air 04/07/17 17:03 98.0 93 15 158/90 100 Room Air 04/07/17 17:00 197/98 04/07/17 17:00 98.0 04/07/17 16:30 88 15 197/98 98 Room Air 04/07/17 16:02 210/103 Intake and Output 04/07/17 04/08/17 19:00 07:00 Intake Total 0 ml Output Total 300 ml Balance -300 ml Intake Oral 0 ml Output Emesis 300 ml Laboratory Tests Test 04/08/17 05:10 White Blood Count 14.4 K/UL (4.8-10.8) H Red Blood Count 4.25 M/UL (4.70-6.10) L Hemoglobin 13.8 G/DL (14.2-18.0) L Hematocrit 39.7 % (42.0-52.0) L Mean Corpuscular Volume 94 FL (80-99) Mean Corpuscular Hemoglobin 32.4 PG (27.0-31.0) H Mean Corpuscular Hemoglobin Concent 34.6 G/DL (32.0-36.0) Red Cell Distribution Width 11.0 % (11.6-14.8) L Platelet Count 338 K/UL (150-450) Mean Platelet Volume 6.4 FL (6.5-10.1) L Neutrophils (%) (Auto) 74.1 % (45.0-75.0) Lymphocytes (%) (Auto) 19.7 % (20.0-45.0) L Monocytes (%) (Auto) 5.5 % (1.0-10.0) Eosinophils (%) (Auto) 0.2 % (0.0-3.0) Basophils (%) (Auto) 0.5 % (0.0-2.0) Prothrombin Time 10.6 SEC (9.30-11.50) Prothromb Time International Ratio 1.0 (0.9-1.1) Activated Partial Thromboplast Time 25 SEC (23-33) Troponin I < 0.30 ng/mL (<=0.30) C-Reactive Protein, Quantitative < 0.3 mg/dL (< 0.5) Triglycerides Level 83 mg/dL (< 150) Cholesterol Level 202 mg/dL (< 200) H LDL Cholesterol 74 mg/dL (60-99) HDL Cholesterol > 111 mg/dL (> 60) H Cholesterol/HDL Ratio 1.0 (3.3-4.4) L Thyroid Stimulating Hormone (TSH) 0.099 uIU/mL (0.300-4.500) Height (Feet): 5 Height (Inches): 9.00 Weight (Pounds): 145 Medications Current Medications Medications (Trade) Dose Ordered Sig/Vishal Route PRN Reason Start Time Stop Time Status Last Admin Dose Admin Acetaminophen (Tylenol) 650 mg Q4H PRN ORAL FEVER 04/07/17 15:00 05/07/17 14:59 Albuterol/ Ipratropium (DuoNeb 0.5-3(2.5)mg/3ml) 3 ml Q4H PRN HHN Shortness of Breath 04/07/17 15:00 04/12/17 14:59 Aspirin (ASA) 162 mg DAILY ORAL 04/08/17 09:00 05/08/17 08:59 04/08/17 08:24 Dextrose (Dextrose 50%) STAT PRN IV Hypoglycemia 04/07/17 15:00 05/07/17 14:59 Diltiazem HCl (Cardizem) 10 mg Q1H PRN IV HR > 120 04/07/17 15:00 05/07/17 14:59 Enalaprilat (Vasotec) 2.5 mg Q6H PRN IV sbp more than 160 04/07/17 15:00 05/07/17 14:59 04/08/17 08:24 Heparin Sodium (Porcine) (Heparin 5000 units/ml) 5,000 units EVERY 8 HOURS SUBQ 04/07/17 22:00 05/07/17 21:59 Insulin Aspart (NovoLOG) BEFORE MEALS AND HS SUBQ 04/07/17 16:30 05/07/17 16:29 04/08/17 11:15 Morphine Sulfate (Morphine Sulfate) 2 mg Q4H PRN IVP severe Pain (Pain Scale 7-10) 04/07/17 15:00 04/14/17 14:59 04/08/17 12:31 Nitroglycerin (Ntg) 0.4 mg Q5MIN PRN SL Prn Chest Pain 04/07/17 15:00 05/07/17 14:59 04/07/17 16:02 Ondansetron HCl (Zofran) 4 mg Q6H PRN IVP Nausea & Vomiting 04/07/17 15:00 05/07/17 14:59 04/07/17 17:36 Pantoprazole (Protonix) 40 mg DAILY ORAL 04/08/17 09:00 05/08/17 08:59 04/08/17 08:24 Polyethylene Glycol (Miralax) 17 gm DAILYPRN PRN ORAL Constipation 04/07/17 15:00 05/07/17 14:59 Temazepam (Restoril) 15 mg HSPRN PRN ORAL Insomnia 04/07/17 15:00 04/14/17 14:59 04/07/17 23:14 Assessment/Plan Problem List: (1) ACS (acute coronary syndrome) ICD Codes: I24.9 - Acute ischemic heart disease, unspecified SNOMED: 495832420 (2) Diabetes ICD Codes: E11.9 - Type 2 diabetes mellitus without complications SNOMED: 25746125 (3) Leukocytosis ICD Codes: D72.829 - Elevated white blood cell count, unspecified SNOMED: 612904192, 346411371 Assessment/Plan serial ekg, troponin cardio to see check out wbc sliding scale diabetic diet. CAITIE DOVER Apr 08, 2017 15:22
[2017-04-08] MEDS: Triamterene/Hctz 37.5/25 cap ORAL SCH (21:17)
--- NOTE | 2017-04-08 22:37 | Diagnostic Imaging Report ---
APPROVED REPORT CPT Code: 64744 Present Symptoms Lower Extremity Pain: Bilateral BILATERAL: Imaging reveals a patent deep venous system bilaterally. There is no evidence of thrombus within the femoral, popliteal or tibial segments. The greater saphenous veins are also within normal limits. Doppler indicates normal spontaneous flow within these segments.
--- NOTE | 2017-04-08 22:45 | Consultation ---
DATE OF CONSULTATION: 04/08/2017 CARDIOLOGY CONSULTATION: REFERRING PHYSICIAN: Franki Peña M.D. REASON FOR CONSULTATION: Management of chest pain. HISTORY OF PRESENT ILLNESS: The patient is a very pleasant 61-year-old gentleman, who presented to the emergency department for evaluation of chest pain. The patient states that he recently ran out of blood pressure medication and noticed a pressure in the left chest with the intensity 7/10, nonradiating and not associated shortness of breath, nausea, or vomiting. On arrival to the hospital, initial blood pressure was 150/90 mmHg and heart rate was 78. He was admitted to telemetry for further evaluation and management of chest pain. Initial 12-lead electrocardiogram showed some nonspecific ST-segment changes in the inferior wall, but no clear-cut evidence of ischemia with associated sinus rhythm. PAST MEDICAL HISTORY: Hypertension and diabetes mellitus. PAST SURGICAL HISTORY: None. MEDICATIONS: List of medications including insulin lispro, the dose of which is unknown. SOCIAL HISTORY: The patient denies any history of tobacco, alcohol, or illicit drug use. REVIEW OF SYSTEMS: A 12-system review done essentially negative except what mentioned in the history of present illness. PHYSICAL EXAMINATION: GENERAL: The patient is a very pleasant 61-year-old gentleman, in no apparent respiratory distress. Alert and oriented x4. HEENT: Atraumatic and normocephalic. Anicteric. Pupils are equal, round, and reactive to light and accommodation. Extraocular muscles intact. NECK: JVP is less than 5 cm. No carotid bruits. Carotid upstroke is 2+ bilaterally. CVS: Normal S1, S2. Regular rate and rhythm. No murmurs, gallops, or rubs. PMI is at the fourth intercostal space in the midclavicular line. LUNGS: Clear to auscultation bilaterally. ABDOMEN: Soft, nontender, and nondistended. No hepatosplenomegaly. Positive bowel sounds. EXTREMITIES: No evidence of edema, clubbing, or cyanosis. LABORATORY FINDINGS: WBC 11.1, hemoglobin 14.0, hematocrit 40.8, and platelet count is 300,000. Sodium is 137, potassium 4.2, chloride 96, bicarbonate 25, BUN 14, creatinine 1.2, and glucose 234. Calcium is 9.8. Troponin I x2 negative. Total cholesterol is 202, LDL 74, and HDL 111. TSH is 0.099. INR is 1.0. Toxicology is negative. A 12-lead electrocardiogram, sinus rhythm at a rate of 85 with left atrial enlargement, nonspecific ST and T-wave abnormalities. Chest x-ray shows acute air trapping secondary to central atrial bronchial ball-valve type lesion not excludable. We will consider bronchoscopy for evaluation. ASSESSMENT AND PLAN: The patient is a very unfortunate 61-year-old gentleman, who was seen in Cardiology consultation at request of Dr. Peña. 1. Atypical chest pain. In view of his risk factors of diabetes mellitus and hypertension, the patient will require a adenosine Cardiolite stress test. He denies any prior history of chronic obstructive pulmonary disease or asthma. Therefore, there is no contraindication for adenosine . Further therapeutic and diagnostic decision will be based on results of this test. The patient will also have 2D echocardiography for evaluation of left ventricular systolic and diastolic function. Review of the record shows that he had 2D echocardiography in December 2016 showing normal left ventricular ejection fraction with LVEF of 55%, evidence of grade 1 LV diastolic dysfunction, and right ventricular systolic pressure measured at 17 mmHg. 2. Diabetes mellitus. The patient will benefit a combination of aspirin and statin. 3. History of hypertension with accelerated hypertension on arrival to the hospital likely due to medication noncompliance. The patient will be started on diuretic and lisinopril. We will plan for initiation of calcium channel hyun after the stress test is completed. I would like to thank, Dr. Peña for allowing me to participate in care of this patient. Vish Barrera M.D. DR: Lauri JOB#: [id number] CC:
[2017-04-09] VITALS: BP 175/98
[2017-04-09] MEDS: Enalaprilat 2.5mg/2ml Inj IV PRN (01:41)
[2017-04-09 04:00] VITALS: BP 186/98
[2017-04-09] MEDS: Morphine Sulfate 2mg/ml Inj IVP PRN ×5 (04:34→22:33)
[2017-04-09] MEDS: Heparin 5000 units/ml inj SUBQ SCH ×3 (06:05→22:37)
[2017-04-09] MEDS: NovoLOG Insulin Flexpen SUBQ SCH ×4 (06:06→22:30)
[2017-04-09 07:55] VITALS: BP 105/60
[2017-04-09 08:23] LABS: TROPONIN I < 0.30 ng/mL (<=0.30)
[2017-04-09] MEDS: Triamterene/Hctz 37.5/25 cap ORAL SCH (08:37)
[2017-04-09] MEDS: Aspirin Baby 81mg ORAL SCH (08:38)
[2017-04-09 11:30] VITALS: BP 162/81
[2017-04-09] MEDS ORDERED: Adenosine Inj IVP ONE (13:15)
[2017-04-09 15:44] VITALS: BP 188/105
--- NOTE | 2017-04-09 18:03 | Pulmonology Progress Note ---
Assessment/Plan Problems: (1) ACS (acute coronary syndrome) (2) Diabetes (3) Leukocytosis Assessment/Plan stress study was possibly positive, pending on images monitor bp symptomatic treatment f/u cardio recommendations. Subjective ROS Limited/Unobtainable: No Interval Events: stress study in progress Allergies: Coded Allergies: No Known Allergies (Unverified , 07/15/16) Objective Last 24 Hour Vital Signs Date Time Temp Pulse Resp B/P Pulse Ox O2 Delivery O2 Flow Rate FiO2 04/09/17 15:44 97.9 93 20 188/105 100 Room Air 04/09/17 15:08 188/105 04/09/17 15:05 99 04/09/17 11:40 85 04/09/17 11:30 97.8 102 20 162/81 99 Room Air 04/09/17 08:38 111/63 04/09/17 07:57 101 04/09/17 07:55 97.9 90 20 105/60 100 Room Air 04/09/17 07:05 186/98 04/09/17 04:00 82 04/09/17 04:00 97.7 92 16 186/98 100 Room Air 04/09/17 01:41 175/98 04/09/17 00:00 97.9 91 18 175/98 99 Room Air 04/09/17 00:00 80 04/08/17 21:17 188/99 04/08/17 20:00 81 04/08/17 20:00 98.8 18 18 188/99 100 Room Air 04/08/17 18:08 97.3 96 18 163/104 100 Room Air Intake and Output 04/08/17 04/09/17 19:00 07:00 Intake Total 640 ml 640 ml Output Total 200 ml Balance 640 ml 440 ml Intake Oral 640 ml 640 ml Output Urine Total 200 ml # Voids 3 2 Objective General Appearance: WD/WN Lines, tubes and drains: peripheral, HEENT: normocephalic, atraumatic Neck: non-tender, normal alignment Respiratory/Chest: chest wall non-tender, normal breath sounds Cardiovascular/Chest: normal peripheral pulses, normal rate Abdomen: normal bowel sounds Genitourinary/Rectal: normal genital exam Extremities: normal range of motion, normal inspection Skin Exam: normal pigmentation Laboratory Tests 04/09/17 07:35: Troponin I < 0.30 Current Medications Medications (Trade) Dose Ordered Sig/Vishal Route PRN Reason Start Time Stop Time Status Last Admin Dose Admin Acetaminophen (Tylenol) 650 mg Q4H PRN ORAL FEVER 04/07/17 15:00 05/07/17 14:59 Albuterol/ Ipratropium (DuoNeb 0.5-3(2.5)mg/3ml) 3 ml Q4H PRN HHN Shortness of Breath 04/07/17 15:00 04/12/17 14:59 Aspirin (ASA) 162 mg DAILY ORAL 04/08/17 09:00 05/08/17 08:59 04/09/17 08:38 Dextrose (Dextrose 50%) STAT PRN IV Hypoglycemia 04/07/17 15:00 05/07/17 14:59 Diltiazem HCl (Cardizem) 10 mg Q1H PRN IV HR > 120 04/07/17 15:00 05/07/17 14:59 Enalaprilat (Vasotec) 2.5 mg Q6H PRN IV sbp more than 160 04/07/17 15:00 05/07/17 14:59 04/09/17 01:41 Heparin Sodium (Porcine) (Heparin 5000 units/ml) 5,000 units EVERY 8 HOURS SUBQ 04/07/17 22:00 05/07/17 21:59 04/09/17 14:53 Hydralazine HCl (Apresoline) 10 mg Q4H PRN IV For High Blood Pressure 04/09/17 06:30 05/09/17 06:29 04/09/17 15:08 Insulin Aspart (NovoLOG) BEFORE MEALS AND HS SUBQ 04/07/17 16:30 05/07/17 16:29 04/09/17 17:10 Irbesartan (Avapro) 75 mg DAILY ORAL 04/08/17 21:15 05/08/17 21:14 04/09/17 08:38 Morphine Sulfate (Morphine Sulfate) 2 mg Q4H PRN IVP severe Pain (Pain Scale 7-10) 04/07/17 15:00 04/14/17 14:59 04/09/17 17:56 Nitroglycerin (Ntg) 0.4 mg Q5MIN PRN SL Prn Chest Pain 04/07/17 15:00 05/07/17 14:59 04/07/17 16:02 Ondansetron HCl (Zofran) 4 mg Q6H PRN IVP Nausea & Vomiting 04/07/17 15:00 05/07/17 14:59 04/07/17 17:36 Pantoprazole (Protonix) 40 mg DAILY ORAL 04/08/17 09:00 05/08/17 08:59 04/09/17 08:37 Polyethylene Glycol (Miralax) 17 gm DAILYPRN PRN ORAL Constipation 04/07/17 15:00 05/07/17 14:59 Temazepam (Restoril) 15 mg HSPRN PRN ORAL Insomnia 04/07/17 15:00 04/14/17 14:59 04/09/17 01:14 Triamterene/HCTZ (Dyazide) 1 cap DAILY ORAL 04/08/17 21:15 05/08/17 21:14 04/09/17 08:37 CAITIE DOVER Apr 09, 2017 18:03
--- NOTE | 2017-04-09 19:52 | Cardiology Report ---
APPROVED REPORT EXAM: Two-dimensional and M-mode echocardiogram with Doppler and color Doppler. INDICATION LV function M-Mode DIMENSIONS IVSd0.5 (0.7-1.1cm)Left Atrium (MM)2.6 (1.6-4.0cm) LVDd3.9 (3.5-5.6cm)Aortic Root3.6 (2.0-3.7cm) PWd1.5 (0.7-1.1cm)Aortic Cusp Exc.2.2 (1.5-2.0cm) IVSs1.6 cm LVDs2.2 (2.5-4.0cm) PWs1.8 cm Normal left ventricular chamber size, systolic function and wall motion. Left ventricular ejection fraction estimated to be 65 %. Mild left ventricular hypertrophy by 2-D. Anterior Echo-free space, may be due to pericardial fat or effusion. All other cardiac chamber sizes are within normal limits. Focal aortic valve sclerosis with adequate cusp excursion. Thickened mitral valve leaflets with normal excursion. Mitral annulus and aortic root calcification. Pulmonic valve not well visualized. Normal tricuspid valve structure. IVC at normal size with physiologic collapse. A color flow and spectral Doppler study was performed and revealed: Moderate aortic regurgitation. Trace mitral regurgitation. Mitral diastolic velocities suggest reduced left ventricular relaxation c/w mild LV diastolic dysfunction (Grade I). Trace tricuspid regurgitation. Tricuspid systolic velocities suggests peak right ventricular systolic pressure of 19 mmHg. Pulmonic regurgitation present.
[2017-04-09 20:00] VITALS: BP 155/85
--- NOTE | 2017-04-09 20:14 | Cardiology Report ---
APPROVED REPORT EKG Measurement Heart [id number] Normal sinus rhythm Possible Left atrial enlargement Borderline ECG
--- NOTE | 2017-04-09 20:42 | Cardiology Progress Note ---
Assessment/Plan Assessment/Plan 1. Atypical chest pain, awaiting results of the stress test, 2D echocardiography shows normal left ventricular ejection fraction with LVEF of 55 %. 2. Diabetes mellitus. The patient will benefit a combination of aspirin and statin. 3. Accelerated hypertension, start amlodipine and metoprolol. May consider uptitrating Irbesartan. Subjective Subjective Sinus tachycardia at 105. Objective Last 24 Hour Vital Signs Date Time Temp Pulse Resp B/P Pulse Ox O2 Delivery O2 Flow Rate FiO2 04/09/17 15:44 97.9 93 20 188/105 100 Room Air 04/09/17 15:08 188/105 04/09/17 15:05 99 04/09/17 11:40 85 04/09/17 11:30 97.8 102 20 162/81 99 Room Air 04/09/17 08:38 111/63 04/09/17 07:57 101 04/09/17 07:55 97.9 90 20 105/60 100 Room Air 04/09/17 07:05 186/98 04/09/17 04:00 82 04/09/17 04:00 97.7 92 16 186/98 100 Room Air 04/09/17 01:41 175/98 04/09/17 00:00 97.9 91 18 175/98 99 Room Air 04/09/17 00:00 80 04/08/17 21:17 188/99 Intake and Output 04/08/17 04/09/17 19:00 07:00 Intake Total 640 ml 640 ml Output Total 200 ml Balance 640 ml 440 ml Intake Oral 640 ml 640 ml Output Urine Total 200 ml # Voids 3 2 2D Echo: LVEF 65%, mild LVH, RVSP 19 mmHg, Grade I LVDD Laboratory Tests Test 04/09/17 07:35 Troponin I < 0.30 ng/mL (<=0.30) Objective HEENT: Atraumatic and normocephalic. Anicteric. Pupils are equal, round, and reactive to light and accommodation. Extraocular muscles intact. NECK: JVP is less than 5 cm. No carotid bruits. Carotid upstroke is 2+ bilaterally. CVS: Normal S1, S2. Regular rate and rhythm. No murmurs, gallops, or rubs. PMI is at the fourth intercostal space in the midclavicular line. LUNGS: Clear to auscultation bilaterally. ABDOMEN: Soft, nontender, and nondistended. No hepatosplenomegaly. Positive bowel sounds. EXTREMITIES: No evidence of edema, clubbing, or cyanosis. AMANDA HENRIQUEZ Apr 09, 2017 20:41
[2017-04-09] MEDS ORDERED: Metoprolol 50mg tab ORAL SCH (21:00)
[2017-04-10] VITALS: BP 176/96
[2017-04-10 04:00] VITALS: BP 141/84
[2017-04-10] MEDS: Morphine Sulfate 2mg/ml Inj IVP PRN ×4 (04:18→17:36)
[2017-04-10] MEDS: Heparin 5000 units/ml inj SUBQ SCH ×3 (06:00→22:03)
[2017-04-10] MEDS: NovoLOG Insulin Flexpen SUBQ SCH ×4 (06:15→21:00)
[2017-04-10] MEDS ORDERED: Nitroglycerin Subl 0.4mg tab (Bottle Of 25) SL PRN (06:30)
[2017-04-10] MEDS ORDERED: Enalaprilat 2.5mg/2ml Inj IV PRN (06:49)
[2017-04-10] MEDS ORDERED: Miralax 17gm pkt ORAL PRN (06:54)
[2017-04-10] MEDS ORDERED: DuoNeb 0.5-3(2.5)mg/3ml neb HHN PRN (07:00)
[2017-04-10] MEDS ORDERED: Diltiazem 25mg/5ml IV PRN (07:00)
--- NOTE | 2017-04-10 07:42 | Diagnostic Imaging Report ---
Indications: 61-year-old male with chest pain and hypertension Technique: Single day single isotope protocol utilized. Initially, resting images obtained using IV administration 9.6 millicuries 99M technetium Myoview. Subsequently, patient underwent adenosine stress testing. See cardiology report for details. During adenosine infusion, IV administration 29.8 mCi 99 M technetium Myoview. SPECT and planar images obtained. SPECT images gated to 8 phases of the cardiac cycle were also obtained, and reformatted into cine images for evaluation of ejection fraction. Comparison: None Findings: Presence or absence of symptoms during infusion is not described on the cardiology report. Per cardiology report, resting EKG demonstrates normal sinus rhythm nonsignificant ST-T wave changes. Presence or absence of ST changes during infusion is not described on the cardiology report. Imaging demonstrates no fixed nor reversible post stress perfusion defects.. Calculated post stress ejection fraction 62% Impression: Nonischemic clinical response to pharmacologic stress, per cardiology report Nonischemic electrocardiographic response to pharmacologic stress, per cardiology report No imaging findings to suggest ischemia, at level of stress achieved. Calculated post stress ejection fraction 62%
[2017-04-10 08:00] VITALS: BP 142/80
[2017-04-10] MEDS: Aspirin Baby 81mg ORAL SCH (08:45)
[2017-04-10] MEDS: Triamterene/Hctz 37.5/25 cap ORAL SCH (08:46)
[2017-04-10] MEDS: Metoprolol 50mg tab ORAL SCH ×2 (08:48→21:00)
[2017-04-10 12:00] VITALS: BP 183/85
[2017-04-10 16:00] VITALS: BP 169/100
[2017-04-10] MEDS ORDERED: METOPROLOL TART50 MG ORAL (17:07)
[2017-04-10] MEDS ORDERED: AVAPRO75 MG ORAL (17:07)
[2017-04-10] MEDS ORDERED: ASPIRIN81 MG ORAL (17:07)
--- NOTE | 2017-04-10 17:11 | Pulmonology Progress Note ---
Assessment/Plan Problems: (1) ACS (acute coronary syndrome) (2) Diabetes (3) Leukocytosis Assessment/Plan stress study was possibly positive, pending on images monitor bp symptomatic treatment f/u cardio recommendations. Subjective Allergies: Coded Allergies: No Known Allergies (Unverified , 07/15/16) Objective Last 24 Hour Vital Signs Date Time Temp Pulse Resp B/P Pulse Ox O2 Delivery O2 Flow Rate FiO2 04/10/17 16:00 97.5 81 20 169/100 100 Room Air 04/10/17 12:00 97.9 81 20 183/85 100 Room Air 04/10/17 08:48 83 159/86 04/10/17 08:46 159/86 04/10/17 08:00 97.9 89 20 142/80 99 Room Air 04/10/17 04:48 97.9 04/10/17 04:00 69 04/10/17 04:00 98.1 87 18 141/84 Room Air 97 04/10/17 01:41 176/96 04/10/17 00:00 79 04/10/17 00:00 97.9 75 18 176/96 99 Room Air 04/09/17 22:33 93 188/105 04/09/17 22:33 93 188/105 04/09/17 20:00 87 04/09/17 20:00 98.1 99 18 155/85 99 Room Air Intake and Output 04/09/17 04/10/17 19:00 07:00 Intake Total 240 ml 300 ml Output Total 650 ml Balance -410 ml 300 ml Intake Oral 240 ml 300 ml Output Urine Total 650 ml # Voids 2 Objective General Appearance: WD/WN Lines, tubes and drains: peripheral, HEENT: normocephalic, atraumatic Neck: non-tender, normal alignment Respiratory/Chest: chest wall non-tender, normal breath sounds Cardiovascular/Chest: normal peripheral pulses, normal rate Abdomen: normal bowel sounds Genitourinary/Rectal: normal genital exam Extremities: normal range of motion, normal inspection Skin Exam: normal pigmentation Current Medications Medications (Trade) Dose Ordered Sig/Vishal Route PRN Reason Start Time Stop Time Status Last Admin Dose Admin Acetaminophen (Tylenol) 650 mg Q4H PRN ORAL FEVER 04/10/17 06:48 05/10/17 06:47 Albuterol/ Ipratropium (DuoNeb 0.5-3(2.5)mg/3ml) 3 ml Q4H PRN HHN Shortness of Breath 04/10/17 07:00 04/15/17 06:59 Aspirin (ASA) 162 mg DAILY ORAL 04/10/17 09:00 05/10/17 08:59 04/10/17 08:45 Dextrose (Dextrose 50%) STAT PRN IV Hypoglycemia 04/10/17 06:48 05/10/17 06:47 Enalaprilat (Vasotec) 2.5 mg Q6H PRN IV sbp more than 160 04/10/17 06:49 05/10/17 06:48 Heparin Sodium (Porcine) (Heparin 5000 units/ml) 5,000 units EVERY 8 HOURS SUBQ 04/10/17 14:00 05/10/17 13:59 04/10/17 14:58 Insulin Aspart (NovoLOG) BEFORE MEALS AND HS SUBQ 04/10/17 11:30 05/10/17 11:29 04/10/17 12:17 Irbesartan (Avapro) 75 mg DAILY ORAL 04/10/17 09:00 05/10/17 08:59 04/10/17 08:46 Metoprolol Tartrate (Lopressor) 50 mg Q12HR ORAL 04/10/17 09:00 05/10/17 08:59 04/10/17 08:48 Morphine Sulfate (Morphine Sulfate) 2 mg Q4H PRN IVP severe Pain (Pain Scale 7-10) 04/10/17 08:00 04/17/17 07:59 04/10/17 12:58 Nitroglycerin (Ntg) 0.4 mg Q5MIN PRN SL Prn Chest Pain 04/10/17 06:30 05/10/17 06:29 Ondansetron HCl (Zofran) 4 mg Q6H PRN IVP Nausea & Vomiting 04/10/17 06:53 05/10/17 06:52 Pantoprazole (Protonix) 40 mg DAILY ORAL 04/10/17 09:00 05/10/17 08:59 04/10/17 08:47 Polyethylene Glycol (Miralax) 17 gm DAILYPRN PRN ORAL Constipation 04/10/17 06:54 05/10/17 06:53 Temazepam (Restoril) 15 mg HSPRN PRN ORAL Insomnia 04/10/17 21:00 04/17/17 20:59 Triamterene/HCTZ (Dyazide) 1 cap DAILY ORAL 04/10/17 09:00 05/10/17 08:59 04/10/17 08:46 CAITIE DOVER Apr 10, 2017 17:11
[2017-04-10 20:00] VITALS: BP 158/90
--- NOTE | 2017-04-10 23:50 | Cardiology Progress Note ---
Assessment/Plan Assessment/Plan 1. Atypical chest pain, non-ischemic stress test, 2D echocardiography shows normal left ventricular ejection fraction with LVEF of 55%. 2. Diabetes mellitus. The patient will benefit a combination of aspirin and statin. 3. Accelerated hypertension, increase irbesartan and metoprolol dose, continue amlodipine. Subjective Subjective Sinus rhythm at 77. Objective Last 24 Hour Vital Signs Date Time Temp Pulse Resp B/P Pulse Ox O2 Delivery O2 Flow Rate FiO2 04/10/17 21:00 77 158/90 04/10/17 20:00 97.7 77 20 158/90 99 Room Air 04/10/17 16:00 97.5 81 20 169/100 100 Room Air 04/10/17 12:00 97.9 81 20 183/85 100 Room Air 04/10/17 08:48 83 159/86 04/10/17 08:46 159/86 04/10/17 08:00 97.9 89 20 142/80 99 Room Air 04/10/17 04:48 97.9 04/10/17 04:00 69 04/10/17 04:00 98.1 87 18 141/84 Room Air 97 04/10/17 01:41 176/96 04/10/17 00:00 79 04/10/17 00:00 97.9 75 18 176/96 99 Room Air Intake and Output 04/09/17 04/10/17 19:00 07:00 Intake Total 240 ml 300 ml Output Total 650 ml Balance -410 ml 300 ml Intake Oral 240 ml 300 ml Output Urine Total 650 ml # Voids 2 2D Echo: LVEF 65%, mild LVH, RVSP 19 mmHg, Grade I LVDD Objective HEENT: Atraumatic and normocephalic. Anicteric. Pupils are equal, round, and reactive to light and accommodation. Extraocular muscles intact. NECK: JVP is less than 5 cm. No carotid bruits. Carotid upstroke is 2+ bilaterally. CVS: Normal S1, S2. Regular rate and rhythm. No murmurs, gallops, or rubs. PMI is at the fourth intercostal space in the midclavicular line. LUNGS: Clear to auscultation bilaterally. ABDOMEN: Soft, nontender, and nondistended. No hepatosplenomegaly. Positive bowel sounds. EXTREMITIES: No evidence of edema, clubbing, or cyanosis. AMANDA HENRIQUEZ 21, 2017 23:50
[2017-04-11] VITALS: BP 107/59
[2017-04-11] MEDS: Morphine Sulfate 2mg/ml Inj IVP PRN ×4 (01:47→13:43)
[2017-04-11 04:00] VITALS: BP 129/55
[2017-04-11] MEDS: NovoLOG Insulin Flexpen SUBQ SCH ×2 (06:27→13:02)
[2017-04-11] MEDS: Heparin 5000 units/ml inj SUBQ SCH ×2 (06:27→13:43)
[2017-04-11 08:00] VITALS: BP 166/88
[2017-04-11] MEDS: Aspirin Baby 81mg ORAL SCH (08:33)
[2017-04-11] MEDS: Triamterene/Hctz 37.5/25 cap ORAL SCH (08:36)
[2017-04-11] MEDS ORDERED: Metoprolol 50mg tab ORAL SCH (09:00)
[2017-04-11 12:00] VITALS: BP 100/49
--- NOTE | 2017-04-11 18:30 | Pulmonology Progress Note ---
Assessment/Plan Problems: (1) ACS (acute coronary syndrome) (2) Diabetes (3) Leukocytosis Assessment/Plan stress study was possibly positive, pending on images monitor bp symptomatic treatment f/u cardio recommendations. Subjective Allergies: Coded Allergies: No Known Allergies (Unverified , 07/15/16) Objective Last 24 Hour Vital Signs Date Time Temp Pulse Resp B/P Pulse Ox O2 Delivery O2 Flow Rate FiO2 04/11/17 14:13 97.3 04/11/17 12:00 97.3 74 20 100/49 97 Room Air 04/11/17 08:49 84 103/53 04/11/17 08:34 103/53 04/11/17 08:00 98.2 84 20 166/88 100 Room Air 04/11/17 04:00 97.2 79 20 129/55 95 Room Air 04/11/17 00:00 97.7 63 20 107/59 100 Room Air 04/10/17 21:00 77 158/90 04/10/17 20:00 97.7 77 20 158/90 99 Room Air Intake and Output 04/10/17 04/11/17 19:00 07:00 Intake Total 400 ml Output Total 400 ml Balance 400 ml -400 ml Intake Oral 400 ml Output Urine Total 400 ml # Voids 4 Objective General Appearance: WD/WN Lines, tubes and drains: peripheral, HEENT: normocephalic, atraumatic Neck: non-tender, normal alignment Respiratory/Chest: chest wall non-tender, normal breath sounds Cardiovascular/Chest: normal peripheral pulses, normal rate Abdomen: normal bowel sounds Genitourinary/Rectal: normal genital exam Extremities: normal range of motion, normal inspection Skin Exam: normal pigmentation CAITIE DOVER Apr 11, 2017 18:30
--- NOTE | 2017-04-11 23:47 | Cardiology Progress Note ---
Assessment/Plan Assessment/Plan 1. Atypical chest pain, non-ischemic stress test, 2D echocardiography shows normal left ventricular ejection fraction with LVEF of 55%. 2. Diabetes mellitus. The patient will benefit a combination of aspirin and statin. 3. Accelerated hypertension,continue irbesartan, metoprolol and amlodipine. Subjective Subjective Transferred to the med-surg unit. No cardiac events. Objective Last 24 Hour Vital Signs Date Time Temp Pulse Resp B/P Pulse Ox O2 Delivery O2 Flow Rate FiO2 04/11/17 14:13 97.3 04/11/17 12:00 97.3 74 20 100/49 97 Room Air 04/11/17 08:49 84 103/53 04/11/17 08:34 103/53 04/11/17 08:00 98.2 84 20 166/88 100 Room Air 04/11/17 04:00 97.2 79 20 129/55 95 Room Air 04/11/17 00:00 97.7 63 20 107/59 100 Room Air Intake and Output 04/10/17 04/11/17 19:00 07:00 Intake Total 400 ml Output Total 400 ml Balance 400 ml -400 ml Intake Oral 400 ml Output Urine Total 400 ml # Voids 4 2D Echo: LVEF 65%, mild LVH, RVSP 19 mmHg, Grade I LVDD Objective HEENT: Atraumatic and normocephalic. Anicteric. Pupils are equal, round, and reactive to light and accommodation. Extraocular muscles intact. NECK: JVP is less than 5 cm. No carotid bruits. Carotid upstroke is 2+ bilaterally. CVS: Normal S1, S2. Regular rate and rhythm. No murmurs, gallops, or rubs. PMI is at the fourth intercostal space in the midclavicular line. LUNGS: Clear to auscultation bilaterally. ABDOMEN: Soft, nontender, and nondistended. No hepatosplenomegaly. Positive bowel sounds. EXTREMITIES: No evidence of edema, clubbing, or cyanosis. AMANDA HENRIQUEZ Apr 11, 2017 23:47
--- NOTE | 2017-04-12 11:12 | Discharge Summary ---
Discharge Summary Hospital Course Date of Admission Apr 07, 2017 at 14:14 Date of Discharge Apr 11, 2017 at 16:30 Admitting Diagnosis ACS HPI John Alvarez is a 61 year old male who was admitted on Apr 07, 2017 at 14:14 for Acute Coronary Syndrome Hospital Course [id number] Discharge Discharge Disposition Patient was discharged to [facility] Discharge Diagnoses: Nicole Mora NP Apr 12, 2017 11:12
--- NOTE | 2017-04-13 00:45 | Discharge Summary 2 SIG ---
DATE OF ADMISSION: 04/07/2017 DATE OF DISCHARGE: 04/11/2017 EXCHANGE TROUBLE SHOOTER: Vish Barrera M.D. BRIEF HOSPITAL COURSE: The patient is a 61-year-old male, who presented to ED for evaluation of left leg pain and chest pain. He has history of diabetes and hypertension. And ran out of his medications three days ago. He noted pressure on his chest, which was left-sided, 7/10, and nonradiating. On evaluation at ED, troponin was negative. Urine toxicology was negative. EKG showed normal sinus rhythm with no acute changes. Chest x-ray was unremarkable. He was given nitroglycerin and aspirin and [place] for chronic leg pain. Due to the patient's risk factors, he was admitted for cardiac workup. He was followed by Dr. Barrera. Echocardiogram done showed ejection fraction of 65%. Venous duplex was negative for DVT bilaterally. He was given aspirin and statins and was given Irbesartan, metoprolol, and amlodipine. He underwent adenosine stress test. Results were nonischemic. The patient was cleared for discharge, however, the patient was homeless. Social service was called in and the patient was referred to recuperative care. Recuperative care will assist the patient in getting a primary medical doctor and referrals for housing. He was discharged via hospital van to recuperative care. Prescriptions were filled and was provided a cane prior to discharge. FINAL DIAGNOSES: 1. Atypical chest pain. 2. Accelerated hypertension. 3. Diabetes mellitus. 4. Homelessness. Franki Peña M.D. I have been assigned to dictate discharge summary on this account and I was not involved in the patient's management. Nicole Mora N.P. DR: JOSEPH JOB#: [id number] CC: RICARDO
== END 2017-04-11 16:30 | disposition home or self-care (01) | DRG 203 ==
LOC: EDBD 12:19 → EMR 12:45 → 2E 14:14 → EDBEDREQ 14:21 → 4E 04-10 06:51
DX: R07.89 Other chest pain (principal); I10 Essential (primary) hypertension; E11.9 Type 2 diabetes mellitus without complications; Z59.0 Homelessness; G89.29 Other chronic pain; M79.605 Pain in left leg; Z91.14 Patient's other noncompliance with medication regimen
CPT/HCPCS: 36415; 71010; 78452; 80053; 80061; 80300; 80329; 82550; 82553; 82962; 84443; 84484; 85025; 85610; 85730; 86140; 93005; 93017; 93306; 93970; J1815; J2405

== ENCOUNTER 2017-04-13 12:58 | Emergency (ER) | payer MEDICAID ==
[~2017-04-13] VITALS: Ht 180.3 cm; Wt 54.4 kg
[~2017-04-13 12:58] MED LIST changes: +ASPIRIN81 MG ORAL; +AVAPRO75 MG ORAL; +METOPROLOL TART50 MG ORAL
[2017-04-13] MEDS ORDERED: Norco 5mg/325mg tab ORAL ONE (13:30)
[2017-04-13 13:47] VITALS: BP 223/97
[2017-04-13] MEDS ORDERED: AVAPRO75 MG ORAL (14:42)
[2017-04-13] MEDS ORDERED: ACETAMINOPHEN-1 EAC1 ORAL (14:42)
[2017-04-13] MEDS ORDERED: METOPROLOL TART50 MG ORAL (14:42)
--- NOTE | 2017-04-13 14:57 | Emergency Room Report ---
History of Present Illness General Chief Complaint: Pain Source: Patient Present Illness HPI 61 YOM with cane walk-in with fall in shower today, fell on right side of thigh. States had "big herman" put in his leg years ago. Also states ran out of his HTN meds. Per recent admission, had stress test nuclear to rule out for ischemia. EF also WNL. Triage SBP>200. Homeless, history of non-compliance Also denies chest pain, SOB, abd pain, headache. Allergies: Coded Allergies: No Known Allergies (Unverified , 07/15/16) Patient History Past Medical History: HTN Past Surgical History: none Pertinent Family History: none Social History: Denies: alcohol use, drug use, smoking Immunizations: UTD Reviewed Nursing Documentation: PMH: Agreed, PSxH: Agreed Nursing Documentation-PMH Hx Cardiac Problems: No Hx Hypertension: Yes Hx Pacemaker: No Hx Asthma: No Hx COPD: No Hx Diabetes: Yes Hx Cancer: No Hx Gastrointestinal Problems: No Hx Dialysis: No Hx Neurological Problems: No Hx Cerebrovascular Accident: No Hx Seizures: No Review of Systems All Other Systems: negative except mentioned in HPI Physical Exam Vital Signs Date Time Temp Pulse Resp B/P Pulse Ox O2 Delivery O2 Flow Rate FiO2 04/13/ 13:12 98.8 63 18 223/97 98 Room Air Sp02 EP Interpretation: reviewed, abnormal General Appearance: normal inspection, well appearing, no apparent distress, alert, GCS 15, non-toxic, cachetic Head: normocephalic, atraumatic Eyes: bilateral eye EOMI, bilateral eye PERRL ENT: normal ENT inspection, hearing grossly normal, normal voice Neck: normal inspection, full range of motion, supple, no bony tend Respiratory: normal inspection, lungs clear, normal breath sounds, no respiratory distress, no retraction, no wheezing Cardiovascular #1: regular rate, rhythm, no edema Gastrointestinal: normal inspection, normal bowel sounds, non tender, soft, no guarding, no hernia Genitourinary: no CVA tenderness Musculoskeletal: normal inspection, back normal, normal range of motion, Linda' s Sign negative, other - Right leg: no obvious trauma to right side of leg. Minimally non-tender to exam. Able to flex/extend at right hip, knee, ankle/ foot Neurologic: normal inspection, alert, oriented x3, responsive, feed handler III-XII nml as tested, speech normal Psychiatric: normal inspection, judgement/insight normal, mood/affect normal Skin: normal inspection, normal color, no rash Medical Decision Making Diagnostic Impression: Primary Impression: Pain Additional Impression: HTN (hypertension) Qualified Codes: I10 - Essential (primary) hypertension ER Course Xrays unremarkable for acute traumatic fracture BP meds refilled Analgesia provided DC home Other X-Ray Diagnostic Results X-Ray ordered: Right femur # of Views/Limited Vs Complete: 3 View EP Interpretation: Yes Interpretation: no fractures, no dislocation, no soft tissue swelling, other - Herman in place Indication: Pain Impression: No acute disease Interpreting ER Provider: Yuni Last Vital Signs Date Time Temp Pulse Resp B/P Pulse Ox O2 Delivery O2 Flow Rate FiO2 04/13/17 14:45 98.8 04/13/17 13:47 63 18 223/97 98 Room Air Status: improved Disposition: HOME, SELF-CARE Condition: Improved Scripts Acetaminophen With Codeine (T#3) (TYLENOL #3 TAB*) Y Tab 1 TAB ORAL BID Y for For Pain for 7 Days, #30 TAB Prov: ONI BUCHANAN M.D. 04/13/17 Irbesartan* (AVAPRO*) 75 Mg Tablet 75 MG ORAL DAILY for 30 Days, TAB Prov: ONI BUCHANAN M.D. 04/13/17 Metoprolol Tartrate* (METOPROLOL TARTRATE*) 50 Mg Tablet 50 MG ORAL Q12HR for 60 Days, TAB Prov: ONI BUCHANAN M.D. 04/13/17 Referrals: ONEL ELIZABETH,REFERRING (PCP) Patient Instructions: Managing Your High Blood Pressure, Hypertension Additional Instructions: - Take your Blood Pressure medications as prescribed and as were refilled for you today - Take T#3 as needed for pain ONI BUCHANAN M.D. Apr 13, 2017 14:57
[2017-04-13 15:17] VITALS: BP 168/85
[2017-04-13 15:20] VITALS: BP 168/85
== END 2017-04-13 15:21 | disposition home or self-care (01) ==
LOC: EMR 13:18
DX: R52 Pain, unspecified (principal); I10 Essential (primary) hypertension; Z76.0 Encounter for issue of repeat prescription; W19.XXXA Unspecified fall, initial encounter; Y92.002 Bathroom of unspecified non-institutional (private) residence as the place of occurrence of the external cause
CPT/HCPCS: 99284